=== PATIENT | male | born 1975 | race African-American/Black ===

== ENCOUNTER 2017-09-09 08:51 | Day surgery (SDC) | payer OTHER, SELFPAY ==
[2017-09-08 12:52] VITALS: BMI 40.6
[2017-09-09] VITALS (9 sets, daily range): BP systolic 115–159; BP diastolic 81–100; PULSE 60–82; RESP 18–24; TEMP 36.2–36.6; O2SAT 93–99
--- NOTE | 2017-09-09 10:00 | HMH.ANESCL ---
[facility] Anesthesia Checklist - Airway Assessment C-Spine Mobility Assessed: Yes (MP1) TMJ Mobility Assessed: Yes - Anesthesia Plan Anesthesia Risk discussed: Yes Anesthesia Plan: Verified ASA Class: III Anesthesia Type: MAC [facility] Anesthesia HX I have reviewed the patient's past medical history: Yes Medical History: Reports:: Congestive Heart Failure, Diabetes Mellitus Type 2 ( borderline'), Hypertension Denies:: Cancer, Diabetes Mellitus Type 1, MRSA, Seizures Other Medical History: Denies: Blood Transfusion Reaction Comment: Cardiomyopathy, MVR Other Surgeries: Yes: No Previous Surgery. No: Pacemaker Amputation: No Fractures: No *Family Hx:: Asthma, Coronary Artery Disease, Diabetes, Heart Attack, Hyperlipidemia, Hypertension, Kidney Disease, Stroke
--- NOTE | 2017-09-09 10:03 | P.PN_ITS ---
[facility] Anesthesia Checklist - Airway Assessment C-Spine Mobility Assessed: Yes (MP1) TMJ Mobility Assessed: Yes - Anesthesia Plan Anesthesia Risk discussed: Yes Anesthesia Plan: Verified ASA Class: III Anesthesia Type: MAC [facility] Anesthesia HX I have reviewed the patient's past medical history: Yes Medical History: Reports:: Congestive Heart Failure, Diabetes Mellitus Type 2 ( borderline'), Hypertension Denies:: Cancer, Diabetes Mellitus Type 1, MRSA, Seizures Other Medical History: Denies: Blood Transfusion Reaction Comment: Cardiomyopathy, MVR Other Surgeries: Yes: No Previous Surgery. No: Pacemaker Amputation: No Fractures: No *Family Hx:: Asthma, Coronary Artery Disease, Diabetes, Heart Attack, Hyperlipidemia, Hypertension, Kidney Disease, Stroke
[2017-09-09 10:21] LABS: Basophils % 0.6 % (0.1-2.0); Eosinophils # 0.2 K/mm3 (0.0-0.4); Eosinophils % 2.8 % (0.1-12.0); Hematocrit 50.1 % (42.0-52.0); Hemoglobin 17.1 g/dL (14.1-18.0); Lymphocytes # 2.4 K/mm3 (0.7-4.5); Lymphocytes % 30.9 K/mm3 (10-50); Mean Corpuscular HGB Conc 34.2 g/dL (31.8-35.4); Mean Corpuscular Hemoglobin 26.8 pg (27.0-31.2); Mean Corpuscular Volume 78.4 fl (80-94); Mean Platelet Volume 8.7 fl (7.4-10.4); Monocytes # 0.4 K/mm3 (0.1-1.0); Monocytes % 5.1 % (1.7-9.3); Neutrophils # 4.7 K/mm3 (1.8-7.8); Neutrophils % 60.7 % (37.0-80.0); Platelet Count 154 K/mm3 (142-424); Red Blood Count 6.39 M/mm3 (4.60-6.20); Red Cell Distribution Width 15.7 % (11.5-17.5); White Blood Count 7.8 K/mm3 (4.8-10.8)
[2017-09-09 10:23] LABS: Anion Gap 12.1 mEq/L (5-15); Blood Urea Nitrogen 17 mg/dL (7-18); Carbon Dioxide 25 mmol/L (21.0-32.0); Chloride 107 mmol/L (98-107); Creatinine Clearance Estimated 162 mg/ml (0-300); Creatinine,Serum 1.13 mg/dL (0.70-1.30); Estimated Glomerular Filt Rate > 60 ml/min (>60); GFR (African American) > 60 ML/MIN (>60); Glucose 116 mg/dL (74-106); Potassium 4.1 mmoL/L (3.5-5.1); Sodium 140 mmol/L (136-145)
--- NOTE | 2017-09-09 13:10 | XR_ITS ---
XR pacemaker defibrillator CLINICAL INDICATION: ITS.REASON: ARRYTHMIA ORDERING PHYSICIAN: Junior Blackmon MD PATIENT AGE: 42 years Fluoroscopy time: 3 minutes and 19 seconds COMPARISON: None FINDINGS: 4 images submitted with the C-arm during pacemaker insertion available for position review IMPRESSION: As above
--- NOTE | 2017-09-09 13:49 | XR_ITS ---
XR CHEST PORTABLE CLINICAL INDICATION: ITS.REASON: post AICD placement-lead placement ORDERING PHYSICIAN: Junior Blackmon MD PATIENT AGE: 42 years COMPARISON: None FINDINGS: Bipolar cardiac pacemaker device is present with an AICD in good position. No evidence of pneumothorax. Borderline cardiomegaly without failure. Lungs are clear bilaterally. IMPRESSION: Bipolar cardiac pacemaker device is present with an AICD in good position
--- NOTE | 2017-09-09 14:52 | SUR.PHASEII ---
1445: XRAY results back-good position.
--- NOTE | 2017-11-12 10:39 | P.PCN_ITS ---
[facility] Pacemaker - Pacemaker Placement Date of Procedure:: 09/09/17 Time of Procedure:: 11:00 Procedure Performed:: Pocket formation for permanent pacemaker placement Placement of atrial sensing pacing lead into the right atrial appendage Placement of ventricular sensing pacing lead into the right ventricular apex Permanent pacemaker placement Preoperative Diagnosis:: Symptomatic bradycardia Complications:: None Estimated Blood Loss: 10 Technique:: 1% Lidocaine with epinephrine used to anesthetize the left anterior aspect of the chest.Scalpel was used to make the initial cutaneous incision while electrocautery was used to dissect down into the fascia. The fascia was lifted off the pectoralis muscle and digitally manipulated creating a pocket for the pacemaker. The patient was then placed in Trendelenburg position and the subclavian vein was accessed via the Selinger technique. A 7 Marshallese sheath was placed under fluoroscopic guidance into the subclavian vein. Following this, an additional wire was placed into the sheath. Now, with two wires inside the 7 Marshallese sheath, this sheath was removed, maintaining the two wires in the subclavian vein. The sheath and dilator was then placed over one of the wires while keeping the other wire in place within the subclavian vein. The dilator was removed from the sheath. Using fluoroscopic guidance, the ventricular lead was placed into the right ventricular apex, screwed and secured into place. Electronic interrogation proved acceptable thresholds and voltage within the lead. Using 3-0 silk, the ventricular lead was then secured into place. Lead was secured to the fascia using the 3-0 silk. Following this, the sheath was pealed away. An additional 7 Marshallese fresh sheath and dilator was placed over the existing wire. Using fluoroscopic guidance, the atrial lead was then placed into the right atrial appendage and screwed and secured in place. Electrical interrogation demonstrated acceptable thresholds and voltage numbers. The atrial lead was then secured into place using 3-0 silk and then the lead was finally secured to the fascia. With both the atria and ventricular leads in place with acceptable thresholds and sensitivity, the atrial and ventricular leads were placed into the pacemaker generator. Pacemaker generator was then secured to the fascia using 3-0 silk. 1 gram of Ancef was used to flush the pocket. Following the pacemaker being secured to the fascia and in place, Monocryl was used to close the subcutaneous layers while claribel were used to close the cutaneous layer. A pressure dressing was placed and the patient was transferred to the postop holding area in stable condition for postoperative care. - Interrogation P-wave measures: 1.7 mV P-wave impedence: 620 ohms P-wave threshold: 0.3 V R-wave greater: Greater than 15 mV R-wave impedence: 570 ohms R-wave threshold: 0.5 V Pulse width: 0.5 mA Mode: DDDR Pacemaker Model Number: [id number]
--- NOTE | 2017-11-17 14:17 | HMH.AICD ---
[facility] AICD - AICD Date: 09/09/17 Procedures:: 1. Pocket formation for AICD. 2. Placement of atrial sensing and pacing coil into the right atrial appendage. 3. Placement of a ventricular sensing pacing and shocking coil in the right ventricular apex. 4. Permanent AICD placement Indications for test:: Systolic Congestive Heart Failure, ejection <35% [place] Heart Association Class 3 CHF Informed consent:: Obtained prior to procedure. EBL:: Less than 10 ml. Technique:: 1% lidocaine with epinephrine used to anesthetize the left anterior aspect of chest. Scalpel was used to make the initial cutaneous incision wall electrocautery was used to dissect down into the fascia. The fascia was lifted off the pectoralis muscle and digitally manipulated creating a pocket for the defibrillator. The patient was then placed in Trendelenburg position and the subclavian vein was accessed via the Seldinger technique. A 7 Nigerian sheath was placed under fluoroscopic guidance into the subclavian vein. Following this, an additional wire was placed into the sheath. Now, with 2 wires inside the 7 Nigerian sheath, this sheath was removed, maintaining the 2 wires in the subclavian vein. This shift and dilator was then placed over 1 of the wires while keeping the other wire in place within the subclavian vein. The dilator was removed from the sheath. Using fluoroscopic guidance, the ventricular lead was placed into the right ventricular apex, screwed and secured into place. Electronic interrogation proved acceptable thresholds and voltage within the lead. Using 3-0 silk, the ventricular lead was then secured into place. Lead was secured to the fascia using the 3-0 silk. Following this, the sheath was peeled away. An additional 7 Nigerian fresh sheath and dilator was placed over the existing wire. Using fluoroscopic guidance, the atrial lead was then placed into the right atrial appendage and screwed and secured in place. Electrical interrogation demonstrated acceptable thresholds and voltage number. The atrial lead was then secured into place using 3-0 silk. 1 g of Ancef was used to flush the pocket. Following the defibrillator being secured to the fascia and in place, Monocryl was used to close subcutaneous layer claribel were used to close the cutaneous layer. A pressure dressing was placed and the patient was transferred to the postop holding area in stable condition for postoperative care. Impression:: 1. Successful pocket formation for permanent defibrillator placement. 2. Successful placement of an atrial sensing pacing lead into the right atrial appendage. 3. Successful placement of a ventricular sensing, pacing, and shocking lead in the right ventricular apex. 4. Successful permanent defibrillator placement. Interrogation:: Generator model [id number] 40Q serial number [id number] Atrial lead model number model number [id number] serial number [id number] Right Ventricular lead model number [id number] serial number [id number] RA: P wave 1.7 mV Threshold 0.3 V Impedance 620 ohms pulse width .5 ms RVA: R wave 15 mV Threshold 0.5 V Impedance 570 ohms pulse width 0.5 ms Mode: DDDR Plan:: 1.Post-op wound care.
--- NOTE | 2017-11-17 14:24 | P.PCN_ITS ---
[facility] AICD - AICD Date: 09/09/17 Procedures:: 1. Pocket formation for AICD. 2. Placement of atrial sensing and pacing coil into the right atrial appendage. 3. Placement of a ventricular sensing pacing and shocking coil in the right ventricular apex. 4. Permanent AICD placement Indications for test:: Systolic Congestive Heart Failure, ejection <35% [place] Heart Association Class 3 CHF Informed consent:: Obtained prior to procedure. EBL:: Less than 10 ml. Technique:: 1% lidocaine with epinephrine used to anesthetize the left anterior aspect of chest. Scalpel was used to make the initial cutaneous incision wall electrocautery was used to dissect down into the fascia. The fascia was lifted off the pectoralis muscle and digitally manipulated creating a pocket for the defibrillator. The patient was then placed in Trendelenburg position and the subclavian vein was accessed via the Seldinger technique. A 7 Bulgarian sheath was placed under fluoroscopic guidance into the subclavian vein. Following this , an additional wire was placed into the sheath. Now, with 2 wires inside the 7 Bulgarian sheath, this sheath was removed, maintaining the 2 wires in the subclavian vein. This shift and dilator was then placed over 1 of the wires while keeping the other wire in place within the subclavian vein. The dilator was removed from the sheath. Using fluoroscopic guidance, the ventricular lead was placed into the right ventricular apex, screwed and secured into place. Electronic interrogation proved acceptable thresholds and voltage within the lead. Using 3-0 silk, the ventricular lead was then secured into place. Lead was secured to the fascia using the 3-0 silk. Following this, the sheath was peeled away. An additional 7 Bulgarian fresh sheath and dilator was placed over the existing wire. Using fluoroscopic guidance, the atrial lead was then placed into the right atrial appendage and screwed and secured in place. Electrical interrogation demonstrated acceptable thresholds and voltage number. The atrial lead was then secured into place using 3-0 silk. 1 g of Ancef was used to flush the pocket. Following the defibrillator being secured to the fascia and in place, Monocryl was used to close subcutaneous layer claribel were used to close the cutaneous layer. A pressure dressing was placed and the patient was transferred to the postop holding area in stable condition for postoperative care. Impression:: 1. Successful pocket formation for permanent defibrillator placement. 2. Successful placement of an atrial sensing pacing lead into the right atrial appendage. 3. Successful placement of a ventricular sensing, pacing, and shocking lead in the right ventricular apex. 4. Successful permanent defibrillator placement. Interrogation:: Generator model [id number] 40Q serial number [id number] Atrial lead model number model number [id number] serial number [id number] Right Ventricular lead model number [id number] serial number [id number] RA: P wave 1.7 mV Threshold 0.3 V Impedance 620 ohms pulse width .5 ms RVA: R wave 15 mV Threshold 0.5 V Impedance 570 ohms pulse width 0.5 ms Mode: DDDR Plan:: 1.Post-op wound care.
== END 2017-09-09 15:00 | disposition home or self-care (01) ==
PROVIDERS: PCP Family Medicine; Visit Provider Internal Medicine
PROC: 0JH608Z Insertion of Defibrillator Generator into Chest Subcutaneous Tissue and Fascia, Open Approach (ICD-10-PCS; CPT 33249; principal; 2017-09-09 11:00)
DX: Z45.02 Encounter for adjustment and management of automatic implantable cardiac defibrillator (principal); I50.22 Chronic systolic (congestive) heart failure; I34.0 Nonrheumatic mitral (valve) insufficiency; I42.0 Dilated cardiomyopathy
CPT/HCPCS: 33249; 71045; 80048; 85025; C1721; C1777; C1898

== ENCOUNTER → 2019-12-20 11:58 | Outpatient (CLI) | payer OTHER, SELFPAY ==
--- NOTE | 2019-12-20 | CA_ITS ---
APPROVED REPORT EXAM: Comprehensive 2D, Doppler, and color-flow Echocardiogram Prospect Manager: Barbara Espinoza CRT Ht: 6 ft 3 in Wt: 325lbs BSA: 2.70 BP: 148/80 mmHg Indications: Diabetes, Obesity, Peripheral Edema, Hypertension/HDD, smoker, dilated CM, smoker 2D Dimensions LVOT 2.18 cm (M/F) 1.5-2.5 M-Mode Dimensions RVDd 2.94 cm (0.9-2.6) LVDd 4.86 cm (3.5-5.7) LVDs 4.01 cm (3.5-5.7) IVSd 2.07 cm (0.6-1.1) PWd 1.39 cm (0.6-1.1) EF (Teich) 36.40% FS 17.50% EDV (Teich) 110.70 mL ESV (Teich) 70.40 mL LV Diastology E/A Ratio 0.66 Mitral Valve MV A Velocity 73.00 (40-130 cm/s) Left Ventricle Left atrium is mildly enlarged, left ventricle is normal size, moderate concentric left ventricular hypertrophy, visually estimated ejection fraction 50% with no regional wall motion abnormality, grade 1 diastolic dysfunction seen with tissue Doppler evidence of raise left atrial pressure. Right Ventricle Right atrium right ventricle mildly enlarged with normal contractility. Aortic Valve Aortic valve is minimally thickened and fibrosed, there is no aortic stenosis or aortic insufficiency. Mitral Valve Mitral valve is grossly normal, there is mild mitral regurgitation. Tricuspid Valve Tricuspid valve grossly normal, there is mild tricuspid regurgitation. Pulmonic Valve Pulmonic valve is poorly visualized. Great Vessels Aortic root is normal size. Pericardium No significant pericardial effusion noted. Conclusion 1. Mildly enlarged left atrium, normal left ventricular size, moderate concentric left ventricular hypertrophy, visually estimated ejection fraction 50% with no regional wall motion abnormality, grade 1 diastolic dysfunction seen with tissue Doppler evidence of raise left atrial pressure. 2. Mildly enlarged right ventricle with normal contractility. 3. Mild mitral and tricuspid regurgitation. 4. No significant pericardial effusion noted. Electronically signed by : Michael Ken, 12/20/2019 20:24:32
[2019-12-20 12:23] LABS: Basophils # 0.1 K/mm3 (0-0.2); Basophils % 0.7 % (0.1-2.0); Eosinophils # 0.2 K/mm3 (0.0-0.4); Eosinophils % 2.1 % (0.1-12.0); Hematocrit 50.1 % (42.0-52.0); Hemoglobin 17.3 g/dL (14.1-18.0); Lymphocytes # 1.4 K/mm3 (0.7-4.5); Lymphocytes % 17.6 % (10-50); Mean Corpuscular HGB Conc 34.5 g/dL (31.8-35.4); Mean Corpuscular Hemoglobin 27.4 pg (27.0-31.2); Mean Corpuscular Volume 79.3 fl (80-94); Mean Platelet Volume 8.3 fl (7.4-10.4); Monocytes # 0.2 K/mm3 (0.1-1.0); Monocytes % 2.7 % (1.7-9.3); Neutrophils # 5.9 K/mm3 (1.8-7.8); Neutrophils % 76.9 % (37.0-80.0); Platelet Count 239 K/mm3 (142-424); Red Blood Count 6.31 M/mm3 (4.60-6.20); Red Cell Distribution Width 13.9 % (11.5-17.5); White Blood Count 7.7 K/mm3 (4.8-10.8)
[2019-12-20 13:18] LABS: Chloride 100 mmol/L (98-107); Potassium 5.1 mmoL/L (3.5-5.1); Sodium 135 mmol/L (136-145)
[2019-12-20 13:21] LABS: Anion Gap 13.1 mEq/L (5-15); Blood Urea Nitrogen 14 mg/dl (9-20); Calcium 10.1 mg/dl (8.4-10.2); Carbon Dioxide 27 mmol/L (22.0-30.0); Estimated Glomerular Filt Rate 91 ml/min (>60); GFR (African American) 110 ML/MIN (>60); Glucose 199 mg/dl (74-100)
[2019-12-20 13:31] LABS: NT Pro Brain Natriuretic Pep. 32.7 pg/mL (0-125)
== END ==
PROVIDERS: Visit Provider Physician Assistant
DX: E11.9 Type 2 diabetes mellitus without complications (principal); E66.9 Obesity, unspecified; E78.5 Hyperlipidemia, unspecified; G47.33 Obstructive sleep apnea (adult) (pediatric); I10 Essential (primary) hypertension; I34.0 Nonrheumatic mitral (valve) insufficiency; I42.0 Dilated cardiomyopathy; I50.20 Unspecified systolic (congestive) heart failure; R60.0 Localized edema
CPT/HCPCS: 36415; 80048; 83880; 85025; 93306

== ENCOUNTER 2020-01-14 08:48 | Day surgery (SDC) | payer OTHER, SELFPAY ==
[2020-01-14] VITALS (16 sets, daily range): BP systolic 115–148; BP diastolic 65–86; PULSE 66–91; RESP 16–20; TEMP 36.8; O2SAT 92–100; BMI 42.2
--- NOTE | 2020-01-14 | IR_ITS ---
APPROVED REPORT Patient Location: Outpatient PROCEDURES Right radial arterial access Catheter placement in the right common iliac artery Right common iliac artery antegrade angiogram with unilateral runoff to the right foot Catheter placement in the left common iliac artery Left common iliac artery antegrade angiogram with unilateral runoff to the left foot Catheter placement of the distal abdominal aorta Distal abdominal aortogram INDICATION Abnormal FRANCIA 0.50 and 0.60 right left respectively, Peripheral artery disease, Jimbo class III claudication Informed consent was obtained prior to the procedure. COMPLICATIONS NONE Estimated Blood Loss: LESS THAN 10 ML TECHNIQUE 1% lidocaine used anesthetize the right anterior aspect of the right wrist. The right radial artery was accessed via the Salinger technique and a 6 Qatari hydrophilic sheath was placed in the right radial artery. Under fluoroscopic guidance the PV multi-curve catheter was placed in the right common iliac artery and right common iliac artery angiography with unilateral runoff to the right foot was performed. The catheter was then pulled back and placed into the left common iliac artery and the procedure was repeated. The catheter was then pulled back to the distal abdominal aorta and distal abdominal aortography was performed. At the end of this procedure the apparatus was removed the sheath was removed good hemostasis was achieved using TR banding patient was transferred to the postop holding in stable condition ANGIOGRAPHIC RESULTS The distal abdominal aorta is normal. The bilateral common iliac arteries are widely patent as are the bilateral internal and external iliac arteries. Bilateral femoral arteries are normal The right superficial femoral artery is ostially occluded and occluded throughout its entire course. The right profunda femoris is a large-caliber vessel which is widely patent and collateralizes the mid popliteal artery. The popliteal artery has 50% stenosis both proximal to and distal to the dense collateral network from the profunda femoris artery. Distally the popliteal artery is normal and gives rise to an anterior tibialis artery posterior tibialis artery and peroneal artery. The anterior tibialis artery has mid vessel 60% stenoses but is a large caliber vessel and has nice inline flow into the right foot. The TP trunk as a 70 to 80% stenosis and gives rise to large caliber posterior tibialis artery and peroneal artery. The peroneal artery supplies the medial portion of the ankle while the posterior tibialis artery does have inline flow into the right foot The left superficial femoral artery is proximally occluded. It does reconstitute at the pre-geniculate popliteal level. A large collateral network from a widely patent profunda femoris artery supplies the popliteal artery. The popliteal artery then gives rise to the anterior tibialis artery posterior tibialis artery and peroneal artery. There is slow flow distally. IMPRESSION Bilaterally occluded superficial femoral arteries with the right being ostially occluded and the left being proximally occluded into its distal segment Three-vessel runoff below the knee bilaterally as described above PLAN 1. I recommend medical management. Although the left superficial femoral artery is a relatively easy fix from a percutaneous standpoint patient is a smoker and the long-term patency of a stent in this distribution is relatively poor. As long as patient has no limb threatening ischemia or poorly healing lower extremity ulcer or recalcitrant claudication involving the left leg I would strongly recommend medical management. Further complicati
[2020-01-14 10:02] LABS: Basophils # 0.1 K/mm3 (0-0.2); Basophils % 1.1 % (0.1-2.0); Eosinophils # 0.3 K/mm3 (0.0-0.4); Eosinophils % 2.9 % (0.1-12.0); Hematocrit 49.2 % (42.0-52.0); Hemoglobin 16.4 g/dL (14.1-18.0); Lymphocytes % 21.4 % (10-50); Mean Corpuscular HGB Conc 33.3 g/dL (31.8-35.4); Mean Corpuscular Hemoglobin 27.2 pg (27.0-31.2); Mean Corpuscular Volume 81.6 fl (80-94); Mean Platelet Volume 8.5 fl (7.4-10.4); Monocytes # 0.4 K/mm3 (0.1-1.0); Monocytes % 4.5 % (1.7-9.3); Neutrophils # 6.5 K/mm3 (1.8-7.8); Platelet Count 223 K/mm3 (142-424); Red Blood Count 6.02 M/mm3 (4.60-6.20); Red Cell Distribution Width 13.6 % (11.5-17.5); White Blood Count 9.4 K/mm3 (4.8-10.8)
[2020-01-14 10:08] LABS: Chloride 101 mmol/L (98-107)
[2020-01-14 10:09] LABS: Potassium 4.6 mmoL/L (3.5-5.1); Sodium 136 mmol/L (136-145)
[2020-01-14 10:11] LABS: Blood Urea Nitrogen 26 mg/dl (9-20); Creatinine Clearance Estimated 96 mL/min (50-200); Estimated Glomerular Filt Rate 72 ml/min (>60); GFR (African American) 88 ML/MIN (>60)
[2020-01-14 10:12] LABS: Anion Gap 15.6 mEq/L (5-15); Carbon Dioxide 24 mmol/L (22.0-30.0); Glucose 161 mg/dl (74-100)
== END 2020-01-14 14:35 | disposition home or self-care (01) ==
LOC: CATHLAB 08:50
PROVIDERS: PCP Family Medicine; Visit Provider Internal Medicine
PROC: (CPT 75716; principal; 2020-01-14 09:00)
DX: I70.223 Atherosclerosis of native arteries of extremities with rest pain, bilateral legs (principal); Z72.0 Tobacco use; I11.0 Hypertensive heart disease with heart failure; I50.22 Chronic systolic (congestive) heart failure; I34.0 Nonrheumatic mitral (valve) insufficiency; E11.9 Type 2 diabetes mellitus without complications; E66.01 Morbid (severe) obesity due to excess calories; Z68.41 Body mass index [BMI] 40.0-44.9, adult; Z95.0 Presence of cardiac pacemaker; Z79.01 Long term (current) use of anticoagulants
CPT/HCPCS: 75716; 36247; 80048; 85025; 99152; 99153; C1725; C1769; J1644; Q9966

== ENCOUNTER → 2020-12-29 07:11 | Outpatient (CLI) | payer OTHER, SELFPAY ==
--- NOTE | 2020-12-29 | CA_ITS ---
APPROVED REPORT Exam: Pharmacologic Technologist: Meme Taylor, Ht: 6 ft 1 in Wt: 299 lbs BSA: 2.55 m2 Rhythm: NSR/IVCD WITH STT ABNORMALITIES INF. Medical History Medical History: HTN, Hyperlipidemia Medications: Asa,,,,, Allopurinol,,,,, Carvedilol,,,,, SpirOLACTONE,,,,, Digoxin,,,,, INdomethacin,,,,, AtorvaASTATIN,,,,, AmlodiNPINE,,,,, EnTRESTO,,,,, Toresemide,,,,, GabaENTIN,,,,, Cardiac Risk Factors: HTN, Hyperlipidemia Stress Test Details Test: LEXISCAN HR Resting HR: 73 bpm Max Heart Rate (APMHR): 174.634978 bpm Max HR Achieved: 95 bpm Target HR (85% APMHR): 147.739033 bpm % of APMHR: 54.60 Recovery HR: 77 bpm BP Resting BP: 156/88 mmHg Max BP: 156/88 mmHg Recovery BP: 145.0/82.0 mmHg ECG Resting ECG: NSR/ IVCD WITH STT ABNORMALITIES INF Clinical Reason for Termination: Completed Protocol Exercise duration: 04:08 min Highest Stage Achieved: Stress ECG Conclusion DURING LEXISCAN PT EXPERINCED NO CP. RARE COUPLET AND FREQUENT PVCS. <1.5MM ST SEGMENT CHANGES. NON DIAGNOSTIC Electronically signed by : Michael Ken, 12/29/2020 11:23:59
--- NOTE | 2020-12-29 07:12 | NM_ITS ---
APPROVED REPORT Exam: Nuclear Stress Test Indication: PACE MAKER, HTN, D.M., HYPERLIPIDEMIA, TOB USE, FM HX Patient Location: Outpatient Stress Tech: Yuliya Del Toro [place] Tech:JANELL Castellanos RT(R)(N) Ht: 6 ft 0 in Wt: 300 lbs HR: 69 bpm BP: 156/88 mmHg BSA: 2.53 m2 History: PACE MAKER, HTN, D.M., HYPERLIPIDEMIA, TOB USE, FM HX Procedure: Patient received a 0.4 mg of intravenous Lexiscan, resting heart rate 69 bpm, resting blood pressure 156/88 mmHg, with Lexiscan maximum heart rate achived was 87 bpm which is Less than 85 % of the maximum predicted heart rate and blood pressure was 139/83 mmHg. With Lexiscan, patient denied any complaint of chest pain. Electrocardiogram Resting electrocardiogram showed sinus rhythm, with Lexiscan there is less than 1.[address] segment depression noted from the baseline EKG. The EKG portion of the Lexiscan is nondiagnostic. Cardiac Stress and Resting SPECT Images: Cardiac Stress and Resting SPECT images were obtained using technetium 99m Myoview 31.0 mCi stress and 10.11 mCi at rest. Gated SPECT for analysis of segmental wall motion and calculation of the ejection fraction also done. Prone images were also obtained. Cardiac stress and rest SPECT images show uniform myocardial activity without segmental perfusion abnormality, there is transient ischemic dilatation of the left ventricle seen, computer derived ejection fraction 35% with left ventricular global hypokinesis. Right ventricle is mildly enlarged with normal contractility. Conclusion: 1. The EKG portion of the Lexiscan is nondiagnostic. 2. No scintigraphic evidence of reversible ischemia seen, computer derived ejection fraction is 35% with left ventricular global hypokinesis, right ventricle is mildly enlarged with normal contractility, there is transient ischemic dilatation of the left ventricle seen, the causes for transient ischemic dilatation is balanced ischemia, microvascular disease, diabetes, elevated left ventricular end-diastolic pressure and hypertensive heart disease. Clinical correlation is recommended. 3. Abnormal Lexiscan Myoview study. Electronically signed by : Michael Ken, 12/29/2020 11:27:54
--- NOTE | 2020-12-29 07:27 | CA_ITS ---
APPROVED REPORT EXAM: Comprehensive 2D, Doppler, and color-flow Echocardiogram Patient Coordinator Front Desk: Lorena Becerril RVT Ht: 6 ft 1 in Wt: 299lbs BSA: 2.55 BP: 170/97 mmHg Indications: VTACH,CM,CHF,HLD,HTN,DM,OBESITY TDS-PT BODY HABITUS 2D Dimensions LVOT 2.21 cm (M/F) 1.5-2.5 LA Volume 41.90 mL LA Volume Index 16.43 mL/m2 (M/F) 16-34 M-Mode Dimensions RVDd 2.52 cm (0.9-2.6) LA Diam 3.43 cm (1.9-4.0) LVDd 6.83 cm (3.5-5.7) Ao Diam 3.67 cm (2.0-3.7) LVDs 5.15 cm (3.5-5.7) IVSd 1.00 cm (0.6-1.1) PWd 1.00 cm (0.6-1.1) EF (Teich) 47.60% FS 24.60% EDV (Teich) 241.60 mL TAPSE 1.79 (<1.7) ESV (Teich) 126.60 mL LV Diastology E Decel Time 290.00 (160-240 msec) E/A Ratio 0.9 MED E' 5.20 (< 7 cm/sec) E'/MED E' Ratio 12.54 (>14) LAT E' 8.40 (<10 cm/sec) E/LAT E' Ratio 7.76 (>14) Mitral Valve MV E Max Capo. 65.00 (40-130 cm/s) MV A Velocity 73.00 (40-130 cm/s) E/A Ratio 0.89 MV Decel. Time 290.00 (160-240 ms) MV PHT 85.00 ms Pulmonary Valve PV Peak Velocity 95.00 (50-150 cm/s) Left Ventricle Left atrium is mildly enlarged, left ventricle is mildly dilated, mild concentric left ventricular hypertrophy, visually estimated ejection fraction approximately 40 to 45%, left ventricle appears to be globally hypokinetic. Diastolic parameters are inconclusive. Right Ventricle Right atrium and right ventricle are normal size and contractility. Aortic Valve Aortic valve is grossly normal, there is no aortic stenosis or aortic insufficiency. Mitral Valve Mitral valve grossly normal, there is trace mitral regurgitation. Tricuspid Valve Tricuspid grossly normal, there is trace tricuspid regurgitation. Tricuspid regurgitation jet velocity is inadequate for calculation of the right ventricular systolic pressure. Pulmonic Valve Pulmonic valve is poorly visualized. Great Vessels Aortic root is normal size. Pericardium No significant pericardial effusion noted. Conclusion 1. Technically difficult study because of the patient fact in poor acoustic windows 2. Mildly enlarged left atrium, mildly dilated left ventricle, mild concentric left ventricular hypertrophy, visually estimated ejection fraction 40 to 45%, left ventricle is mildly globally hypokinetic, diastolic parameters are inconclusive. 3. Trace mitral and tricuspid regurgitation. 4. No significant pericardial effusion noted. Electronically signed by : Michale Ken, 12/29/2020 12:49:04
== END ==
PROVIDERS: PCP Family Medicine; Visit Provider Urology
DX: I47.2 Ventricular tachycardia (principal); I42.0 Dilated cardiomyopathy; I34.0 Nonrheumatic mitral (valve) insufficiency; I50.22 Chronic systolic (congestive) heart failure; I11.0 Hypertensive heart disease with heart failure; I73.9 Peripheral vascular disease, unspecified; R94.31 Abnormal electrocardiogram [ECG] [EKG]; E11.9 Type 2 diabetes mellitus without complications; E66.01 Morbid (severe) obesity due to excess calories; E78.49 Other hyperlipidemia; G47.33 Obstructive sleep apnea (adult) (pediatric); F17.210 Nicotine dependence, cigarettes, uncomplicated; Z68.39 Body mass index [BMI] 39.0-39.9, adult
CPT/HCPCS: 78452; 93017; 93306; A9502; J2785

== ENCOUNTER 2024-07-01 09:41 | Outpatient (CLI) | payer OTHER, MEDICAID, SELFPAY ==
--- NOTE | 2024-07-01 09:51 | XR_ITS ---
PROCEDURE INFORMATION: Exam: XR Chest Exam date and time: 07/01/2024 9:57 AM Age: 49 years old Clinical indication: Other: Cxr to check implant. ; Additional info: Look at inplant TECHNIQUE: Imaging protocol: Radiologic exam of the chest. Views: 2 views. Total images: 3 COMPARISON: CR [id number] XR chest portable 09/09/2017 2:12 PM FINDINGS: Tubes, catheters and devices: AICD projects in satisfactory location. Lungs: Bilateral hyperinflation is present. Atelectatic and/or early infiltrative changes noted within the right lower lobe. Pleural spaces: Unremarkable. No pleural effusion. No pneumothorax. Heart/Mediastinum: Heart demonstrates mild diffuse enlargement. Bones/joints: Unremarkable. IMPRESSION: 1. AICD projects in satisfactory location. 2. Mild cardiomegaly. 3. Bilateral hyperinflation is present. 4. Atelectatic and/or early infiltrative changes noted within the right lower lobe.
[2024-07-01 10:13] LABS: Basophils # 0.1 K/mm3 (0-0.2); Basophils % 1.3 % (0.1-2.0); Eosinophils # 0.1 K/mm3 (0.0-0.4); Eosinophils % 1.3 % (0.1-12.0); Hematocrit 50.9 % (42.0-52.0); Hemoglobin 17.4 g/dL (14.1-18.0); Lymphocytes # 2.6 K/mm3 (0.7-4.5); Lymphocytes % 46.2 % (10-50); Mean Corpuscular HGB Conc 34.3 g/dL (31.8-35.4); Mean Corpuscular Hemoglobin 26.9 pg (27.0-31.2); Mean Corpuscular Volume 78.5 fl (80-94); Mean Platelet Volume 8.2 fl (7.4-10.4); Monocytes # 0.4 K/mm3 (0.1-1.0); Monocytes % 6.6 % (1.7-9.3); Neutrophils # 2.5 K/mm3 (1.8-7.8); Neutrophils % 44.7 % (37.0-80.0); Platelet Count 152 K/mm3 (142-424); Red Blood Count 6.48 M/mm3 (4.60-6.20); Red Cell Distribution Width 16.1 % (11.5-17.5); White Blood Count 5.5 K/mm3 (4.8-10.8)
[2024-07-01 10:50] LABS: Alanine Aminotransferase 44 U/L (12-78); Albumin Level 3.5 g/dl (3.5-5.0); Alkaline Phosphatase 99 U/L (38-126); Anion Gap 14.1 mEq/L (5-15); Aspartate Amino Transferase 45 U/L (17-59); Bilirubin,Direct 0.4 mg/dl (0.0-0.4); Bilirubin,Indirect 1.1 mg/dL (0.0-0.9); Bilirubin,Total 1.5 mg/dl (0.2-1.3); Bilirubin,Unconjugated 1.1 mg/dL (0.0-1.1); Blood Urea Nitrogen 29 mg/dl (9-20); Calcium 8.8 mg/dl (8.4-10.2); Carbon Dioxide 23 mmol/L (22.0-30.0); Chloride 103 mmol/L (98-107); Chol/HDL Ratio 4.7 (1-3.5); Cholesterol 107 mg/dl (140-200); Estimated Glomerular Filt Rate 43 ml/min (>60); GFR (African American) 52 ML/MIN (>60); Glucose 134 mg/dl (74-100); HDL Cholesterol 23 mg/dl (40-60); Potassium 4.1 mmoL/L (3.5-5.1); Sodium 136 mmol/L (136-145); Triglycerides 91 mg/dl (30-150); VLDL Cholesterol 18 mg/dL (0-40)
[2024-07-01 10:58] LABS: NT Pro Brain Natriuretic Pep. 7310 pg/mL (0-125)
[2024-07-01 11:00] LABS: Direct LDL Cholesterol 79.29 mg/dL (100-129)
[2024-07-01 11:06] LABS: Free T4 (Free Thyroxine) 1.76 ng/dl (0.78-2.19)
[2024-07-01 11:19] LABS: Thyroid Stimulating Hormone 2.67 uIU/mL (0.465-4.68)
== END 2024-07-01 23:59 | disposition home or self-care (01) ==
LOC: LAB 09:43
PROVIDERS: PCP Family Medicine; Visit Provider Physician Assistant
DX: I50.42 Chronic combined systolic (congestive) and diastolic (congestive) heart failure (principal); Z95.810 Presence of automatic (implantable) cardiac defibrillator; I73.9 Peripheral vascular disease, unspecified; E78.2 Mixed hyperlipidemia; I34.0 Nonrheumatic mitral (valve) insufficiency; I10 Essential (primary) hypertension; R06.00 Dyspnea, unspecified; R07.9 Chest pain, unspecified
CPT/HCPCS: 36415; 71046; 80048; 80061; 80076; 83880; 84439; 84443; 85025

== ENCOUNTER 2024-07-13 08:28 | Outpatient (CLI) | payer OTHER, MEDICAID, SELFPAY ==
--- NOTE | 2024-07-13 08:38 | CA_ITS ---
APPROVED REPORT EXAM: Comprehensive 2D, Doppler, and color-flow Echocardiogram [employer] Operator: Barbara Espinoza CRT Ht: 6 ft 1 in Wt: 287lbs BSA: 2.51 BP: 103/73 mmHg Indications: Chest Pain, Congestive Heart Failure, Shortness of Breath aicd, ef 40-45% 12/27 2D Dimensions LA Volume 83.80 mL LA Volume Index 32.60 mL/m2 (M/F) 16-34 M-Mode Dimensions RVDd 3.18 cm (0.9-2.6) LA Diam 4.35 cm (1.9-4.0) LVDd 7.60 cm (3.5-5.7) LVDs 7.07 cm (3.5-5.7) IVSd 1.12 cm (0.6-1.1) PWd 1.10 cm (0.6-1.1) EF (Teich) 15.00% FS 7.00% EDV (Teich) 307.30 mL TAPSE 1.44 (<1.7) ESV (Teich) 261.20 mL LV Diastology MED A' 1.30 cm/s LAT A' 6.70 cm/s Aortic Valve AI PHT 605.00 ms AO Peak GR. 2.40 mmHg Pulmonary Valve PV Peak Velocity 182.0 (50-150 cm/s) Tricuspid Valve TR P. Velocity 278.00 cm/s RAP Estimate 10.00 mmHg RVSP 40.90 mmHg Left Ventricle The left ventricle is severely dilated. Left ventricular systolic function is severely decreased. There is normal left ventricular wall thickness. There is severe global hypokinesis present. The distal and apical LV wall regions appear akinetic. Diastolic function is indeterminate. LVEF is 10???15%. Right Ventricle Right ventricle is mild to moderately dilated. Right ventricle is moderately hypokinetic. A device lead is present in the right ventricle. Atria Left atrium is severely dilated. Right atrium is moderately dilated. There is no Doppler evidence of interatrial shunt. Aortic Valve The aortic valve is mildly thickened. There is no aortic valvular stenosis. Mild aortic regurgitation. Mitral Valve The mitral valve leaflets are mildly thickened. No evidence of mitral valve stenosis. Mild mitral regurgitation. Tricuspid Valve The tricuspid valve leaflets are thin and pliable. Trace tricuspid regurgitation. There is insufficient TR jet to estimate RVSP. Pulmonic Valve The pulmonary valve is normal in structure. Trace pulmonic regurgitation. The ascending aorta is not well-visualized. Great Vessels The aortic root is normal in size. IVC is dilated. Pericardium There is no pericardial effusion. Other Information Study Quality: Fair Conclusion Severely dilated LV with severe reduction in LV systolic function (LVEF 10-15%). Mild to moderate RV dilation with moderate reduction in RV function. Biatrial dilation. Mild AI, mild MR. LV severely reduced LV systolic function, further evaluation for ischemia is suggested. Also, outpatient cardiac MRI (cardiomyopathy protocol) is suggested to evaluate for nonischemic etiologies. Electronically signed by : Mattie Garcia MD 07/14/2024 11:28:22
[2024-07-13 10:41] LABS: Anion Gap 16.6 mEq/L (5-15); Blood Urea Nitrogen 30 mg/dl (9-20); Calcium 8.8 mg/dl (8.4-10.2); Carbon Dioxide 29 mmol/L (22.0-30.0); Chloride 95 mmol/L (98-107); Estimated Glomerular Filt Rate 50 ml/min (>60); GFR (African American) 60 ML/MIN (>60); Glucose 120 mg/dl (74-100); Potassium 3.6 mmoL/L (3.5-5.1); Sodium 137 mmol/L (136-145)
[2024-07-13 10:48] LABS: NT Pro Brain Natriuretic Pep. 7920 pg/mL (0-125)
== END 2024-07-13 23:59 | disposition home or self-care (01) ==
PROVIDERS: Nurse Practitioner; PCP Family Medicine; Visit Provider Physician Assistant
DX: I34.0 Nonrheumatic mitral (valve) insufficiency (principal); R07.9 Chest pain, unspecified; R06.00 Dyspnea, unspecified; I50.42 Chronic combined systolic (congestive) and diastolic (congestive) heart failure; I10 Essential (primary) hypertension; E78.2 Mixed hyperlipidemia; I73.9 Peripheral vascular disease, unspecified; R79.89 Other specified abnormal findings of blood chemistry; Z95.810 Presence of automatic (implantable) cardiac defibrillator
CPT/HCPCS: 36415; 80048; 83880; 93306

== ENCOUNTER 2024-07-13 10:35 | Inpatient (IN) | payer OTHER, MEDICAID, SELFPAY ==
[2024-07-13] VITALS (9 sets, daily range): BP systolic 92–153; BP diastolic 58–87; PULSE 99–130; RESP 18–24; TEMP 36.6–36.8; O2SAT 95–98; BMI 36.5
--- OUTSIDE RECORDS SUMMARY | 2024-07-13 10:42 | XMS_ITS | Summary of Care ---
Author Organization [facility] Address [address] [place] [address]- Encounter 10/24/23 - 11/07/23 [facility] [address] [place] [address] Discharge Disposition: 06H Home with Home Health Care Attending Physician: Alvin Boston DO Admitting Physician: Alvin Boston DO Referring Physician: Michael Owen MD Allergies, Adverse Reactions, Alerts Substance Reaction Severity Status rivaroxaban Active Assessment and Plan Extracted from: Title:[facility] PM&R Discharge Summary Author:John Gabriel Date:11/07/23 Patient: SHALOM CAMPBELL Age: 48 years Sex: Male : 1975 Associated Diagnoses: None Author: John Jones MD Result Type: Physician Discharge Summary Result Date: November 07, 2023 08:00 EST Result Status: Auth (Verified) Result Title/Subject: [facility] PM&R Discharge Summary Performed By/Author: John Jones MD on November 05, 2023 14:54 EST Verified By: John Jones MD on November 05, 2023 14:54 EST Encounter info: [id number], [facility], Inpatient, 10/24/2023 - * Final Report * [facility] PM&R Discharge Summary Patient: SHALOM CAMPBELL Age: 48 years Sex: Male : 1975 Associated Diagnoses: None Author: John Jones MD [facility] PM&R Discharge Summary Date of Admission: 10/24/23 Date of Discharge: 11/07/23 Service Attending: Dr. Boston Discharge Attending: Dr. Boston Service Resident: John Jones MD Admission Diagnosis: Acute infarct of the R lateral medulla s/p TNK Admission HPI: Shalom Puckett is a 48-year-old gentleman with past medical history significant for hypertension, hyperlipidemia, previous DVT (2019) previously on Xarelto, heart failure reduced ejection fraction status post pacemaker/defibrillator who presented to outside hospital 10/02/2023 after having difficulty swallowing and feeling weak on the right side. Upon arrival to outside hospital, CT head was performed notable for ischemic stroke and patient received tPA. There was concern for right medullary ischemic CVA and patient was subsequently transferred to [facility] for further evaluation and management. CTA at [facility] was significant for occlusion of right vertebral artery, stenosis of the left vertebral artery, in addition to possible aneurysm at basilar tip. MR head 10/07 showed acute infarct of the right lateral medulla coinciding with patient's deficits of dysphagia. Echo was subsequently performed with EF notable for 20 to 25% without mass or thrombus and global hypokinesis. Patient was subsequently stabilized and physical therapy and Occupational Therapy recommended acute rehabilitation. Patient was stable enough to begin acute rehabilitation on 10/24/2023. He was evaluated at bedside at [facility] with present and patient was able to relay that he was interested in going to [facility] for acute rehabilitation, especially to work on his ability to swallow. He had no additional concerns or complaints at this point in time and is eager to begin rehab. Hospital course complicated by: Acute hypoxic respiratory failure complicated by bilateral pleural effusion secondary to heart failure: 10/12 on intermittent 2 L nasal cannula? denies shortness of air. Encouraged incentive spirometry and compliance with HFrEF regimen Hypertension: Continue spironolactone 25 mg twice daily, Coreg 25 mg twice daily, Entresto 1 tablet twice daily HFrEF status post ICD placement in setting of ischemic cardiomyopathy: EF 20 to 25% with LV dilation? on GDMT. Recommend follow-up with outpatient cardiology Dysphagia: Unable to tolerate p.o. intake? PEG placed 10/18? will continue tube feeds and follow-up outpatient with IR 2 weeks A-fib: Continue Coreg for rate control, Eliquis 5 mg twice daily Histories: PMH: NOEMI, Obesity, HFrEF, ischemic cardiomyopathy, HTN, HL, prior DVT Surg Hx: Colonoscopy, Defibrillator placement Family hx: Father ? CVA Mother - HTN Social hx: Marital Status: Not - girlfriend Children: 2 daughters Previous Residence: [place] Anticipated Residence: Home Tobacco: Denies Alcohol: Denies Drugs: Denies Education: Graduated high school International Travel: denies past 6 months Occupational History: Drug Abuse Counseling Hobbies: Gambling in [place] DME used prior to rehab: None Patient/Family goals for rehab: Gain independence Rehabilitation Hospital Course: Patient was admitted to the CVA service. They were evaluated by PT, OT, and speech. Pt participated and tolerated an average of 3 hours of therapy a day, 5 days a week and made appropriate progress throughout their acute rehabilitation hospital stay. Medical conditions during the rehabilitation stay were addressed as followed below. Rehabilitation of functional impairment: - Completed comprehensive acute inpatient rehabilitation - PT worked on posture/stability, core strengthening and stabilization, gait training, community mobility, balance and positioning, coordination and fine motor control - OT worked on home safety, cognition and memory strategies, core strengthening and stabilization, balance and positioning, functional range of motion, coordination, equipment assessment and training, functional/ADL training including upper and lower body dressing, eating, grooming, toileting - DRILL SHARPENER worked on, cognition and memory strategies as indicated - Rehab nursing worked on self care, medication management and teaching (including pain management), patient mobilization, and safety training - Recommend continuing therapeutic exercises as indicated Medical Hospital Course: Shalom Campbell is a 48-year-old gentleman with past medical history significant for hypertension, hyperlipidemia, previous DVT (2019) previously on Xarelto, heart failure reduced ejection fraction status post pacemaker who suffered the right lateral medulla s/p TNK. Patient was admitted to [facility] and the following problems and treatments for such are detailed below: Rehab diagnoses: R lateral Medulla s/p TNK Resulting Medical/functional changes: Dysphagia Impairment in ADLs Functional Decline Dysarthria Gait disturbance Acute Hospitalization Complicated by: Acute hypoxic respiratory failure complicated by bilateral pleural effusion secondary to HFrEF Hypertension HFrEF status post ICD Dysphagia Feeding difficulty A-fib Medical Comorbidities: T2DM GERD HL Insomnia Gout Rehabilitation for functional pain secondary to AIS of right lateral medulla -Continue with comprehensive rehabilitation program with PT/OT/DRILL SHARPENER and rehab nursing #Acute ischemic??posterior circulation??stroke #Acute Rt Lateral Medulla Infarct #Right vertebral artery occlusion #Severe left vertebral artery stenosis #Post-stroke headache #Dysphagia, post stroke #Hyperlipidemia #Dysarthria #R hemiplegia - No home AP/AC use. Discontinued Xarelto one month ago. - tPA bolus at OSH - No thrombectomy as no LVO on CTA H/N - Etiology cardioembolic (Afib??and severe heart failure) - MRI: Acute infarct of right lateral medulla and chronic cortical infract in pars opercularis - Echo with contrast EF 20-25%, no mass/thrombus, LV severely dilated with severe hypertrophy and global hypokinesis, LA normal size, no ASD or PFO. Diastolic function abnormal - Dysphagia recommend continued NPO; with continuous tube feeds 75mL/hr for nutrition with 30mL/hr water flushes ? transitioned to bolus feeds 10/27/23. MBS 11/02 w no penetration or aspiration - will determine diet recs after discussing what DRILL SHARPENER thinks - Secondary stroke prophylaxis: ??Continued Apixaban 5 mg twice daily, atorvastatin 80mg hs, and ezetimibe 10mg hs -10/30 added nortriptyline 25 mg nightly for sleep hygiene, neuropathic pain, and watering eyes/sinus drainage #Acute hypoxic respiratory failure #Bilateral pleural effusions r/t heart failure -??Reported productive cough at [facility] - COVID negative - Possibly secondary to decreased ability to swallow with possible aspiration. - 10/08, Abd ultrasound: negative for ascites, noted bilateral pleural effusions -??Provided oxygen PRN for comfort and encourage IS and q6 duonebs #HTN Complicated by hypotension - Will continue Spironolactone??25mg BID, carvedilol 25mg BID, and Entresto 1 tablet BID - Can consider titrating carvedilol and Entresto to home dosing given HFrEF afterload reduction -Persistent hypotension, 10/28 dropped spironolactone to 25 mg daily, decreased Coreg to 12.5 mg twice daily, and changed torsemide to as needed dosing -10/30 dropped Coreg to 6.25 mg twice daily with continued hypotension #HFrEF s/p ICD placement #Ischemic Cardiomyopathy #Diastolic dysfunction- EF of 20-25% with LV dilation and eccentric hypertrophy - Cause secondary to ischemic cardiomyopathy - Pt on Coreg 25, Entresto BID,??and Spironolactone (GDMT) -10/28 decreasing Coreg to 12.5 mg twice daily, spironolactone to 25 mg daily - Home dose of Torsemide 20mg PRN -10/28 changed to as needed dosing of torsemide given hypotension - Recommend to follow-up with outpatient cardiology for further management. - Transitioned to entresto daily from BID on 10/30 - Continued to monitor BP #History of unprovoked DVT -??Did??not have any prolonged travel, acute illness, or recent procedure or immobility before the DVT. -??Was on anticoagulation??(xarelto)??until a month ago for 3 month duration. - 10/18 apixaban 5 mg twice daily initiated ? continued #History of Afib status post ablation - Follows [facility] - Continued carvedilol for rate control - 10/18, apixaban 5 mg twice daily initiated. #Hyperglycemia - A1c: 6.6% - Continued FSBS q6h and SSI and 5u glargine qhs #Gout - Continued home allopurinol #Nicotine use disorder -Continued NRT #QT prolongation - 10/02, Qtc 467 - Had caution with QT prolonging agents #Morbid Obesity - BMI: 38.81 - associated with HTN #Neurogenic bowel - bowel regimen with goal for BM at least every 72 hrs - Daily doc ? senna. PRN bisacodyl #Insomnia -Noted to be chronic issue, continued melatonin 9 mg nightly Patient noted to be medically stable on the day of discharge. Physical Exam: Vital Signs (last 24 hrs) Last Charted Temp Oral 98.4 DegF (NOV 05 07:) Heart Rate Peripheral 86 bpm (NOV 05:17) Resp Rate 18 br/min (NOV 05:17) SBP 111 mmHg (NOV 05 07:17) DBP 73 mmHg (NOV 05 07:17) SpO2 94 % (NOV 05:17) Labs: Labs (Last four charted values) WBC 6.7 (NOV 03) 6.8 (OCT 30) 7.6 (OCT 27) 7.9 (OCT 25) Hgb 15.6 (NOV 03) 16.1 (OCT 30) 15.7 (OCT 27) 15.5 (OCT 25) Hct 44.8 (NOV 03) 47.1 (OCT 30) 45.6 (OCT 27) 44.3 (OCT 25) Plt 172 (NOV 03) 170 (OCT 30) 197 (OCT 27) 193 (OCT 25) Na 136.0 (NOV 03) 137.0 (OCT 30) 136.0 (OCT 27) 138.0 (OCT 25) K 3.9 (NOV 03) 4.3 (OCT 30) 4.3 (OCT 27) 4.2 (OCT 25) CO2 26.0 (NOV 03) 29.0 (OCT 30) 27.0 (OCT 27) 28.0 (OCT 25) Cl 103.0 (NOV 03) 99.0 (OCT 30) 100.0 (OCT 27) 101.0 (OCT 25) Cr 0.90 (NOV 03) 1.10 (OCT 30) 1.00 (OCT 27) 1.00 (OCT 25) BUN 12.0 (NOV 03) 20.0 (OCT 30) 21.0 (OCT 27) 20.0 (OCT 25) Glucose 99 (NOV 05) H 171 (NOV 04) H 120 (NOV 04) H 111 (NOV 04) Mg 1.9 (OCT 25) Phos 4.3 (OCT 25) Ca 9.4 (NOV 03) 10.2 (OCT 30) 9.7 (OCT 27) 9.7 (OCT 25) Functional Status on Admission: Current Level of Function Bed Mobility: Supervision Supervision Comments: 10/14: Mod I for all bed mobilty Transfers: Supervision Supervision Comments: 10/16: sit to stand, stand to sit Transfers: Minimal Assistance Minimal Assistance Comments: 10/16: bed to chair, chiar to bed Ambulation: Minimal Assistance Minimal Assistance Comments: 10/09: 25 ft x 4 reps with 2 seated rest breaks Basic ADL's: Minimal Assistance Minimal Assistance Comments: none tested Dressing: Supervision Supervision Comments: 10/16: SBA for upper body Discharge Medications: Home Medications (19) Active allopurinol 100 mg oral tablet 100 mg = 1 tab, G-TUBE, Daily apixaban 5 mg oral tablet 5 mg = 1 tab, G-TUBE, BID atorvastatin 80 mg oral tablet 80 mg = 1 tab, Oral, QHS Coreg 3.125 mg oral tablet 6.25 mg = 2 tab, G-TUBE, BIDmeals docusate-senna 50 mg-8.6 mg oral tablet 2 tab, G-TUBE, QHS Entresto 24 mg-26 mg oral tablet 1 tab, G-TUBE, Daily insulin glargine 100 units/mL subcutaneous solution 5 units, Subcutaneous, QHS insulin lispro 100 units/mL injectable solution Standard, Subcutaneous, TIDAC lactulose 10 g/15 mL oral syrup 20 gm = 30 mL, PRN, Oral, Daily lansoprazole 30 mg oral tablet, disintegrating 30 mg = 1 tab, G-TUBE, BID melatonin 3 mg oral tablet 9 mg = 3 tab, G-TUBE, QHS MiraLax oral powder for reconstitution 17 gm, Oral, Daily nicotine 7 mg/24 hr transdermal film, extended release 1 patch, Transdermal, Daily nortriptyline 25 mg oral capsule 25 mg = 1 cap, G-TUBE, QHS simethicone 80 mg oral tablet, chewable 80 mg = 1 tab, PRN, G-TUBE, q6hr spironolactone 25 mg oral tablet 25 mg = 1 tab, G-TUBE, Daily torsemide 20 mg oral tablet 20 mg = 1 tab, PRN, G-TUBE, Daily Vitamin D3 25 mcg (1000 intl units) oral tablet 50 mcg = 2 tab, Oral, Daily Zetia 10 mg oral tablet 10 mg = 1 tab, G-TUBE, QHS Discharge Precautions: - Patient was prescribed a month of medication scripts and will need to f/u with PCP for further medication prescriptions. - Patient instructed not to drive until evaluated and cleared by a physician. Discharge Status: Improved Discharge Disposition: Home Therapies on discharge: Outpatient PT, OT, DRILL SHARPENER Follow up: Encounter Information Provider Department Dept Phone Address 11/14/2023 1:20 PM Elizabeth, December R, [employer] [facility] Arrive at: [facility] [phone] [address] [facility] [address] 12/26/2023 10:00 AM Katie Bhakta [facility] [place] [facility] Arrive at: [facility] [phone] [address], [address] [facility] [address] Please CC to above providers. HIM: Please cc providers listed above. Addendum by Loc Boston DO on November 07, 2023 10:36 EST I have personally seen and examined the patient independently, reviewed the Resident/ARNPs history, physical exam and medical decision making and agree with the assessment and discharge plan as written. The patient was discharged in stable medical condition. Insulin supplies provided to the family. PEG site looks great on D/C. Functional Status at Discharge: ADL Status [id number] Eating: Not attempted due to medical condition or safety concerns - 88 (11/06/23) [id number] Oral Hygiene: Independent - 06 (11/06/23) [id number] Upper Body Dressing: Independent - 06 (11/06/23) [id number] Lower Body Dressing: Independent - (11/06/23) [id number] Toileting Hygiene: Independent - (11/06/23) [id number] Toilet Transfer: Independent - (11/06/23) [id number] Shower, Bathe Self: Independent - (11/06/23) Tub/Shower Transfer- OT: CANTRELL/CU (11/06/23) Mobility Functional Status [id number] Lying to Sitting Side of Bed Goal: Independent - (11/05/23) [id number] Sit to Stand: Independent - (11/06/23) [id number] Chair,Bed to Chair Transfer: Independent - (11/06/23) [id number] Walk 10 Feet: Independent - (11/05/23) [id number] Walk 50 Feet with Two Turns: Supervision or touching assistance - 04 (11/05/23) [id number] Walk 150 Feet: Supervision or touching assistance - 04 (11/05/23) Speech/Language & Cognition Functional Status Comprehension Mode Functional Status: Auditory, Visual (10/24/23) Ability to Hear: Adequate - no difficulty in normal conversation, social interaction, listening to TV (10/25/23) Visual Acuity: Adequate - sees fine detail, such as regular print in newspapers/books (10/25/23) Health Literacy SILS: Sometimes (11/07/23) [id number] Expression of Ideas and Wants: Expresses complex messages without difficulty and with speech that is clear and easy to understand - 4 (11/06/23) [id number] Understanding Verbal Content: Understands - Clear comprehension without cues or repetitions - 4 (11/06/23) Expression Mode Functional Status: Vocal (10/24/23) Person Orientation IP: Independent (11/05/23) Place Orientation IP: Independent (11/05/23) Time Orientation IP: Independent (11/05/23) Situation Orientation IP: Independent (11/05/23) Biographical Information Orientation IP: Independent (11/05/23) Attention Functional Status - OT: Independent (11/06/23) Attention Functional Status - DRILL SHARPENER: Usually Independent (11/06/23) Memory Functional Status - OT IP: Independent (11/06/23) Memory Functional Status - DRILL SHARPENER IP: Usually Independent (11/06/23) Safety Awareness/Insight - OT: Independent (11/06/23) Safety Awareness/Insight - DRILL SHARPENER: Independent (11/06/23) Simple Problem Solving Func Status OT: Independent (11/06/23) Simple Problem Solving Func Status DRILL SHARPENER: Independent (11/06/23) Complex Problem Solving Func Status OT: Usually Independent (11/06/23) Complex Problem Solving Func Status DRILL SHARPENER: Usually Independent (11/06/23) Communication/Cognition Descriptors: Delayed Response, Self cues, Verbal cues, Visual cues (10/26/23) Communication/Cognition Equipment: Glasses, Bifocals or Contacts, Timer (10/26/23) All patient/family questions were answered. Less than 30 minutes of time was spent in preparing the patient for discharge today. Discharge planning by the primary team has been completed including d/c instructions, ordering DME, discharge medications/prescriptions, restrictions, physician follow up plans, and therapy plans. Addendum by Loc Boston DO on November 07, 2023 10:40 EST Day of D/C Exam: Gen: No distress, resting in bed, shirtless Eyes: no scleral icterus, pupils symmetric, no conjunctival injection ENT: mucous membranes moist, nares patent CV: Regular rate, regular rhythm, (+) S1/S2 Resp: CTA bilaterally, non-labored on RA, symmetric chest wall rise GI: soft, NTTP, +BS, PEG in place (18Fr, non-traction removable) at 9cm MSK: no arthralgias, no myalgias to palpation Neuro: awake and alert, mild dysarthria Medications Alcohol Swabs 1, EA, N/A, ACHS, Use to test blood glucose. Dispense 30 day supply Diagnosis ICD10: E11, 200, EA, 0 Refill(s), Maintenance, Route to Pharmacy Electronically, NMPDP_[id number], Constant Indicator, [facility], 185, 10/31/23 16:4... Start Date: 11/07/23 Status: Ordered allopurinol 100 mg oral tablet 100 mg = 1 tab, Tab, G-TUBE, Daily, 30 tab, 0 Refill(s), Route to Pharmacy Electronically, [facility], 185, 10/31/23 16:43:00 EST, Height/Length Dosing, cm, 131.4, 10/31/23 16:43:00 EST, Weight Dosing, kg Start Date: 11/05/23 Status: Ordered apixaban 5 mg oral tablet 5 mg, = 1 tab, Tab, G-TUBE, BID, 60 tab, 0 Refill(s), Route to Pharmacy Electronically, [facility], 185, 10/31/23 16:43:00 EST, Height/Length Dosing, cm, 131.4, Weight Dosing, 10/31/23 16:43:00 EST, kg, Atrial fibrillation Start Date: 11/05/23 Status: Ordered atorvastatin 80 mg oral tablet 80 mg = 1 tab, Oral, QHS, 30 tab, 0 Refill(s), Route to Pharmacy Electronically, [facility], 185, 10/31/23 16:43:00 EST, Height/Length Dosing, cm, 131.4, 10/31/23 16:43:00 EST, Weight Dosing, kg Start Date: 11/05/23 Status: Ordered Coreg 3.125 mg oral tablet 6.25 mg = 2 tab, Tab, G-TUBE, BIDmeals, 120 tab, 0 Refill(s), Route to Pharmacy Electronically, [facility], 185, 10/31/23 16:43:00 EST, Height/Length Dosing, cm, 131.4, 10/31/23 16:43:00 EST, Weight Dosing, kg Start Date: 11/05/23 Status: Ordered docusate-senna 50 mg-8.6 mg oral tablet 2 tab, Tab, G-TUBE, QHS, 60 tab, 0 Refill(s), Route to Pharmacy Electronically, [facility], 185, 10/31/23 16:43:00 EST, Height/Length Dosing, cm, 131.4, 10/31/23 16:43:00 EST, Weight Dosing, kg Start Date: 11/05/23 Status: Ordered Entresto 24 mg-26 mg oral tablet 1 tab, Tab, G-TUBE, Daily, 30 tab, 0 Refill(s), Route to Pharmacy Electronically, [facility], 185, 10/31/23 16:43:00 EST, Height/Length Dosing, cm, 131.4, 10/31/23 16:43:00 EST, Weight Dosing, kg Start Date: 11/05/23 Status: Ordered Glucometer 1, EA, N/A, Once, Use to test blood glucose. Dispense 30 day supply Diagnosis ICD10: E11, 100, EA, 0 Refill(s), Soft Stop, Route to Pharmacy Electronically, NCPDP_[id number], Constant Indicator, [facility], 185, 10/31/23 16:43:... Start Date: 11/07/23 Status: Ordered Glucose Test Strips 1, EA, N/A, ACHS, Use to test blood glucose. Dispense 30 day supply Diagnosis ICD10: E11, 200, EA, 0 Refill(s), Maintenance, Route to Pharmacy Electronically, NCPDP_[id number], Constant Indicator, [facility], 185, 10/31/23 16:4... Start Date: 11/07/23 Status: Ordered insulin glargine 100 units/mL subcutaneous solution 5 units, Indication: Hyperglycemia Injection-Insulin (soln), Subcutaneous, QHS, 15 mL, 0 Refill(s),Route to Pharmacy Electronically, [facility], 185, 10/31/23 16:43:00 EST, Height/Length Dosing, cm, 131.4, 10/31/23 16:43:00 EST, We... Start Date: 11/05/23 Status: Ordered insulin lispro 100 units/mL injectable solution Standard, Indication: Hyperglycemia Injection-Insulin (soln), Subcutaneous, TIDAC, 15 mL, 0 Refill(s), For BS <200 = 0 units BS 200-250= 2 units BS 251-300= 4 units BS 301-350= 6 units BS >350=8 units and call MD, Route to Pharmacy Electronically, ... Start Date: 11/05/23 Status: Ordered Insulin Pen Pitts 1, EA, N/A, ACHS, Use to administer insulin. Dispense 30 day supply Diagnosis ICD10: E11, 200, EA, 0 Refill(s), Maintenance, Route to Pharmacy Electronically, NCPDP_[id number], Constant Indicator, [facility], 185, 10/31/23 16:4... Start Date: 11/07/23 Status: Ordered Insulin Syringes/Pitts 1, EA, N/A, ACHS, Use to administer insulin. Dispense 30 day supply Diagnosis ICD10: E11, 200, EA, 0 Refill(s), Maintenance, Route to Pharmacy Electronically, NCPDP_[id number], Constant Indicator, [facility], 185, 10/31/23 16:4... Start Date: 11/07/23 Status: Ordered lactulose 10 g/15 mL oral syrup 20 gm = 30 mL, Syrup, Oral, Daily PRN, 300 mL, 0 Refill(s), Constipation, Route to Pharmacy Electronically, [facility], 185, 10/31/23 16:43:00 EST, Height/Length Dosing, cm, 131.4,10/31/23 16:43:00 EST, Weight Dosing, kg Start Date: 11/05/23 Status: Ordered Lancets for finger stick 1, EA, N/A, ACHS, Use to test blood glucose. Dispense 30 day supply Diagnosis ICD10: E11, 200, EA, 0 Refill(s), Maintenance, Route to Pharmacy Electronically, NCPDP_[id number], Constant Indicator, [facility], 185, 10/31/23 16:4... Start Date: 11/07/23 Status: Ordered lansoprazole 30 mg oral tablet, disintegrating 30 mg, 1 tab, Tab-Dis, G-TUBE, BID, 60 tab, 0 Refill(s), Route to Pharmacy Electronically, [facility], 185, 10/31/23 16:43:00 EST, Height/Length Dosing, cm, 131.4, 10/31/23 16:43:00 EST, Weight Dosing, kg Start Date: 11/05/23 Status: Ordered melatonin 3 mg oral tablet 9 mg = 3 tab, Tab, G-TUBE, QHS, 60 tab, 0 Refill(s), Route to Pharmacy Electronically, [facility], 185, 10/31/23 16:43:00 EST, Height/Length Dosing, cm, 131.4, 10/31/23 16:43:00 EST, Weight Dosing, kg Start Date: 11/05/23 Status: Ordered MiraLax oral powder for reconstitution 17 gm, Powder, Oral, Daily, 119 gm, 0 Refill(s), Route to Pharmacy Electronically, [facility], 185, 10/31/23 16:43:00 EST, Height/Length Dosing, cm, 131.4, 10/31/23 16:43:00 EST, Weight Dosing, kg Start Date: 11/05/23 Status: Ordered nicotine 7 mg/24 hr transdermal film, extended release 1 patch, Film, Transdermal, Daily, 30 patch, 0 Refill(s), Route to Pharmacy Electronically, [facility], 185, 10/31/23 16:43:00 EST, Height/Length Dosing, cm, 131.4, 10/31/23 16:43:00 EST, Weight Dosing, kg Start Date: 11/05/23 Status: Ordered nortriptyline 25 mg oral capsule 25 mg = 1 cap, Cap, G-TUBE, QHS, 30 cap, 0 Refill(s), Route to Pharmacy Electronically, [facility], 185, 10/31/23 16:43:00 EST, Height/Length Dosing, cm, 131.4, 10/31/23 16:43:00 EST, Weight Dosing, kg Start Date: 11/05/23 Status: Ordered Sharps Container 1, EA, N/A, Once, Use to test blood glucose. Dispense 30 day supply Diagnosis ICD10: E11, 100, EA, 0 Refill(s), Soft Stop, Route to Pharmacy Electronically, NCPDP_[id number], Constant Indicator, [facility], 185, 10/31/23 16:43:... Start Date: 11/07/23 Status: Ordered simethicone 80 mg oral tablet, chewable 80 mg = 1 tab, Tab-Chew, G-TUBE, q6hr PRN, 36 tab, 0 Refill(s), Gas or flatulence, Route to Pharmacy Electronically, [facility], 185, 10/31/23 16:43:00 EST, Height/Length Dosing, cm, 131.4, 10/31/23 16:43:00 EST, Weight Dosing, kg Start Date: 11/05/23 Status: Ordered spironolactone 25 mg oral tablet 25 mg = 1 tab, Tab, G-TUBE, Daily, 30 tab, 0 Refill(s), Route to Pharmacy Electronically, [facility], 185, 10/31/23 16:43:00 EST, Height/Length Dosing, cm, 131.4, 10/31/23 16:43:00EST, Weight Dosing, kg Start Date: 11/05/23 Status: Ordered torsemide 20 mg oral tablet 20 mg = 1 tab, Tab, G-TUBE, Daily PRN, 30 tab, 0 Refill(s), MD to specify parameters for use, Routeto Pharmacy Electronically, [facility], 185, 10/31/23 16:43:00 EST, Height/Length Dosing, cm, 131.4, 10/31/23 16:43:00 EST, Weight D... Start Date: 11/05/23 Status: Ordered Vitamin D3 25 mcg (1000 intl units) oral tablet 50 mcg = 2 tab, Tab, Oral, Daily, 60 tab, 0 Refill(s), Route to Pharmacy Electronically, [facility], 185, 10/31/23 16:43:00 EST, Height/Length Dosing, cm, 131.4, 10/31/23 16:43:00 EST, Weight Dosing, kg Start Date: 11/05/23 Status: Ordered Zetia 10 mg oral tablet 10 mg = 1 tab, Tab, G-TUBE, QHS, 30 tab, 0 Refill(s), Route to Pharmacy Electronically, [facility], 185, 10/31/23 16:43:00 EST, Height/Length Dosing, cm, 131.4, 10/31/23 16:43:00 EST, Weight Dosing, kg Start Date: 11/05/23 Status: Ordered Problem List Condition Confirmation Course Effective Dates Status H ealth Status Informant At risk of venous thromboembolus 1 Confirmed 10/25/23 Active Cognitive impairment Confirmed Active Dysphagia Confirmed Active Impaired functional endurance Confirmed Active Impaired functional mobility status Confirmed Active Self -care deficit Confirmed Active 1Problem added by Discern Expert Rule: EBN_VTERISKPROB_3 Results Laboratory List Name Date Glucose, POC 11/06/23 Glucose, POC 11/06/23 Automated Diff HSL 11/06/23 Complete Blood Count w/Auto Diff HSL 10/10 06/01 Comprehensive Metabolic Panel HSL 4 Glucose, POC 11/06/23 Automated Diff HSL 11/03/23 Complete Blood Count w/Auto Diff HSL 10/10 03/01 Comprehensive Metabolic Panel HSL 4 Automated Diff HSL 10/30/23 Complete Blood Count w/Auto Diff HSL 10/10 11/01 Comprehensive Metabolic Panel HSL 4 Magnesium HSL 10/25/23 Phosphorus HSL 10/25/23 Prealbumin HSL 10/25/23 Thyroid Stimulating Hormone HSL (TSH HSL ) 10/25/23 Vitamin D 25OH HSL 10/25/23 Most recent to oldest [Reference Range]: 1 2 3 Creatinine Level 0.90 mg/dL (11/06/23 6:49 AM) 0.90 mg/dL (11/03/23 6:52 AM) 1.10 mg/dL (10/30/23 7:00 AM) Estimated Creatinine Clearance 111.67 mL/min 1 (11/06/23 6:49 AM) 111.67 mL/min 2 (11/03/23 6:52 AM) 91.37 mL/min 3 (10/31/23 4:43 PM) Glucose POC RALS [74-106 mg/dL] 102 mg/dL (11/06/23 5:33 PM) 121 mg/dL *HI* (11/06/23 12:49 PM) 119 mg/dL *HI* (11/06/23 6:34 AM) Blood Glucose Stick Site Finger (10/26/23 11:26 PM) Corrected WBC HSL [4-12 x10(3)/mcL] 6 x10(3)/mcL (11/06/23 6:49 AM) 7 x10(3)/mcL (11/03/23 6:52 AM) 7 x10(3)/mcL (10/30/23 7:00 AM) WBC HSL [4.4-11.6 10^3/uL] 6.1 10^3/uL (11/06/23 6:49 AM) 6.7 10^3/uL (11/03/23 6:52 AM) 6.8 10^3/uL (10/30/23 7:00 AM) RBC HSL [04.10-05.80 10^3/uL] 05.42 10^3/uL (11/06/23 6:49 AM) 05.62 10^3/uL (11/03/23 6:52 AM) 05.85 10^3/uL *HI* (10/30/23 7:00 AM) Hemoglobin HSL [13.4-17.6 g/dL] 15.1 g/dL (11/06/23 6:49 AM) 15.6 g/dL (11/03/23 6:52 AM) 16.1 g/dL (10/30/23 7:00 AM) Hematocrit HSL [39.9-53.1 %] 42.8 % (11/06/23 6:49 AM) 44.8 % (11/03/23 6:52 AM) 47.1 % (10/30/23 7:00 AM) MCV HSL [79.9-103.5 fL] 79.0 fL *LOW* (11/06/23 6:49 AM) 79.8 fL *LOW* (11/03/23 6:52 AM) 80.5 fL (10/30/23 7:00 AM) MCH HSL [25.9-34.1 g/dL] 27.9 g/dL (11/06/23 6:49 AM) 27.7 g/dL (11/03/23 6:52 AM) 27.5 g/dL (10/30/23 7:00 AM) MCHC HSL [31.9-35.4 g/dL] 35.3 g/dL (11/06/23 6:49 AM) 34.7 g/dL (11/03/23 6:52 AM) 34.2 g/dL (10/30/23 7:00 AM) Platelet HSL [149-451 10^3/uL] 152 10^3/uL (11/06/23 6:49 AM) 172 10^3/uL (11/03/23 6:52 AM) 170 10^3/uL (10/30/23 7:00 AM) RDW-CV% HSL [11.5-14.5 %] 13.3 % (11/06/23 6:49 AM) 13.1 % (11/03/23 6:52 AM) 13.2 % (10/30/23 7:00 AM) RDW-SD HSL [35.5-44.0 fL] 37.2 fL (11/06/23:49 AM) 37.2 fL (11/03/23 6:52 AM) 37.6 fL (10/30/23 7:00 AM) MPV HSL [8.9-13.1 fL] 9.2 fL (11/06/23 6:49 AM) 10.3 fL (11/03/23 6:52 AM) 9.8 fL (10/30/23 7:00 AM) Neutrophil Auto HSL [39.6-77.4 %] 52.8 % (11/06/23 6:49 AM) 55.3 % (11/03/23 6:52 AM) 50.1 % (10/30/23 7:00 AM) Lymphocyte Auto HSL [17.7-51.9 %] 35.7 % (11/06/23 6:49 AM) 35.4 % (11/03/23 6:52 AM) 39.1 % (10/30/23 7:00 AM) Monocyte Auto HSL [2.9-10.5 %] 8.0 % (11/06/23 6:49 AM) 5.7 % (11/03/23 6:52 AM) 6.2 % (10/30/23 7:00 AM) Eosinophil Auto HSL [0.0-7.1 %] 2.7 % (11/06/23 6:49 AM) 2.6 % (11/03/23 6:52 AM) 3.5 % (10/30/23 7:00 AM) Basophil Auto HSL [0.0-9.1 %] 0.8 % (11/06/23 6:49 AM) 1.0 % (11/03/23 6:52 AM) 1.1 % (10/30/23 7:00 AM) Neutrophil Absolute HSL [1.1-5.4 10^3/uL] 3.2 10^3/uL (11/06/23 6:49 AM) 3.7 10^3/uL (11/03/23 6:52 AM) 3.4 10^3/uL (10/30/23 7:00 AM) Lymphocyte Absolute HSL [0.7-2.8 10^3/uL] 2.2 10^3/uL (11/06/23 6:49 AM) 2.4 10^3/uL (11/03/23 6:52 AM) 2.7 10^3/uL (10/30/23 7:00 AM) Monocyte Absolute HSL [0.0-1.1 10^3/uL] 0.5 10^3/uL (11/06/23 6:49 AM) 0.4 10^3/uL (11/03/23 6:52 AM) 0.4 10^3/uL (10/30/23 7:00 AM) Eosinophil Absolute HSL [0.0-0.5 10^3/uL] 0.2 10^3/uL (11/06/23 6:49 AM) 0.2 10^3/uL (11/03/23 6:52 AM) 0.2 10^3/uL (10/30/23 7:00 AM) Basophil Absolute HSL [0.00-0.06 10^3/uL] 0.10 10^3/uL *HI* (11/06/23 6:49 AM) 0.10 10^3/uL *HI* (11/03/23 6:52 AM) 0.10 10^3/uL *HI* (10/30/23 7:00 AM) Nucleated RBC HSL 0.1 *NA* (11/06/23 6:49 AM) 0.2 *NA* (11/03/23 6:52 AM) 0.3 *NA* (10/30/23 7:00 AM) Sodium HSL [135.9-146.1 mEq/L] 138.0 mEq/L (11/06/23 6:49 AM) 136.0 mEq/L (11/03/23 6:52 AM) 137.0 mEq/L (10/30/23 7:00 AM) Potassium HSL [3.4-4.6 mEq/L] 4.0 mEq/L (11/06/23 6:49 AM) 3.9 mEq/L (11/03/23 6:52 AM) 4.3 mEq/L (10/30/23 7:00 AM) Chloride HSL [95.9-106.1 mEq/L] 104.0 mEq/L (11/06/23 6:49 AM) 103.0 mEq/L (11/03/23:52 AM) 99.0 mEq/L (10/30/23 7:00 AM) Carbon Dioxide HSL [21.9-29.1 mEq/L] 26.0 mEq/L (11/06/23:49 AM) 26.0 mEq/L (11/03/23:52 AM) 29.0 mEq/L (10/30/23 7:00 AM) Anion Gap HSL [8-16 mmol/L] 12 mmol/L (11/06/23:49 AM) 11 mmol/L (11/03/23:52 AM) 13 mmol/L (10/30/23 7:00 AM) Glucose HSL [74.9-115.1 mg/dL] 116.0 mg/dL *HI* (11/06/23 6:49 AM) 157.0 mg/dL *HI* (11/03/23 6:52 AM) 134.0 mg/dL *HI* (10/30/23 7:00 AM) BUN HSL [10.9-23.1 mg/dL] 11.0 mg/dL (11/06/23 6:49 AM) 12.0 mg/dL (11/03/23 6:52 AM) 20.0 mg/dL (10/30/23 7:00 AM) Creatinine HSL [0.6-1.6 mg/dL] 0.9 mg/dL (11/06/23 6:49 AM) 0.9 mg/dL (11/03/23 6:52 AM) 1.1 mg/dL (10/30/23 7:00 AM) eGFR-AA HSL 75 *NA* (11/06/23 6:49 AM) 73 *NA* (11/03/23 6:52 AM) 63 *NA* (10/30/23 7:00 AM) eGFR-Non AA HSL 89 *NA* (11/06/23 6:49 AM) 86 *NA* (11/03/23 6:52 AM) 74 *NA* (10/30/23 7:00 AM) BUN/Creat Ratio HSL [5-20 ratio] 12 ratio (11/06/23 6:49 AM) 13 ratio (11/03/23 6:52 AM) 18 ratio (10/30/23 7:00 AM) Calcium Total HSL [8.9-11.1 mg/dL] 9.4 mg/dL (11/06/23 6:49 AM) 9.4 mg/dL (11/03/23 6:52 AM) 10.2 mg/dL (10/30/23 7:00 AM) Albumin HSL [3.4-5.1 g/dL] 3.7 g/dL (11/06/23 6:49 AM) 3.8 g/dL (11/03/23 6:52 AM) 4.1 g/dL (10/30/23 7:00 AM) Prealbumin HSL [14.9-36.1 mg/dL] 21.9 mg/dL (10/25/23 6:03 AM) Protein Total HSL [5.9-8.4 g/dL] 6.5 g/dL (11/06/23 6:49 AM) 6.7 g/dL (11/03/23 6:52 AM) 7.4 g/dL (10/30/23 7:00 AM) Bilirubin Total HSL [0.1-1.4 mg/dL] 0.5 mg/dL (11/06/23 6:49 AM) 0.5 mg/dL (11/03/23 6:52 AM) 0.7 mg/dL (10/30/23 7:00 AM) Magnesium HSL [1.6-2.3 mg/dL] 1.9 mg/dL (10/25/23 6:03 AM) Phosphorus HSL [3.3-4.6 mg/dL] 4.3 mg/dL (10/25/23 6:03 AM) Alkaline Phosphatase HSL [19.9-90.1 IU/L] 67.0 IU/L (11/06/23 6:49 AM) 63.0 IU/L (11/03/23 6:52 AM) 70.0 IU/L (10/30/23 7:00 AM) AST HSL [9.9-59.1 IU/L] 16.0 IU/L (11/06/23 6:49 AM) 21.0 IU/L (11/03/23 6:52 AM) 20.0 IU/L (10/30/23 7:00 AM) ALT HSL [9.9-40.1 IU/L] 29.0 IU/L (11/06/23 6:49 AM) 36.0 IU/L (11/03/23 6:52 AM) 29.0 IU/L (10/30/23 7:00 AM) Thyroid Stimulating Hormone HSL [0.34-7.01 mIU/mL] 0.91 mIU/mL (10/25/23 6:03 AM) Blood Glucose, Capillary [74-106 mg/dL] 120 mg/dL *HI* (11/07/23 6:25 AM) 149 mg/dL 4 *HI* (11/06/23 10:23 PM) 107 mg/dL *HI* (11/01/23 12:27 AM) Vitamin D 25OH HSL [19.9-40.1 ng/mL] 18.0 ng/mL *LOW* (10/25/23 6:03 AM) 1Result Comment: Calculated using method: Cockcroft-Gault (default) Calculated using Formula : (140-ageInYears)*IBW/(72*scrInMGperDL) Age: 48 (43575815812.0) Serum Creatinine: 0.90 mg/dL (77576035144.0) Height: 185 cm (58319357721.0) Weight: 131.4 kg (IBW = 79.520 kg) 2Result Comment: Calculated using method: Cockcroft-Gault (default) Calculated using Formula : (140-ageInYears)*IBW/(72*scrInMGperDL) Age: 48 (06378596843.0) Serum Creatinine: 0.90 mg/dL (04988776067.0) Height: 185 cm (01834910406.0) Weight: 131.4 kg (IBW = 79.520 kg) 3Result Comment: Calculated using method: Cockcroft-Gault (default) Calculated using Formula : (140-ageInYears)*IBW/(72*scrInMGperDL) Age: 48 (63773327245.0) Serum Creatinine: 1.10 mg/dL (34968179289.0) Height: 185 cm (04456490604.0) Weight: 131.4 kg (IBW = 79.520 kg) 4Result Comment: meter would not scan armband, MRN was put in manually Vital Signs Most recent to oldest [Reference Range]: 1 2 3 Temperature Oral F [96.4-99.1 DegF] 97.5 DegF (11/07/23 7:12 AM) 98.4 DegF (11/06/23 7:15 PM) 97.6 DegF (11/06/23 7:11 AM) Peripheral Pulse Rate [60-100 bpm] 80 bpm (11/07/23 7:13 AM) 90 bpm (11/06/23:15 PM) 96 bpm (11/06/23 7:12 AM) Respiratory Rate [14-20 br/min] 16 br/min (11/07/23 7:12 AM) 18 br/min (11/06/23 7:14 PM) 18 br/min (11/06/23 7:11 AM) Blood Pressure [90-140/60-90 mmHg] 116/77mmHg (11/07/23 7:12 AM) 101/62mmHg (11/06/23 7:12 AM) Systolic Blood Pressure [90-140 mmHg] 96 mmHg (11/06/23 7:15 PM) Diastolic Blood Pressure [60-90 mmHg] 59 mmHg *LOW* (11/06/23 7:15 PM) Mean Arterial Pressure, Cuff 90 mmHg (11/07/23 7:12 AM) 71 mmHg (11/06/23:15 PM) 75 mmHg (11/06/23 7:12 AM) Vital Signs Additional Information seated in w/c: (Abvoe) (10/25/23 9:00 AM) Systolic Blood Pressure Post [90-140 mmHg] 103 mmHg (10/28/23 10:00 AM) Diastolic Blood Pressure Post [60-90 mmHg] 72 mmHg (10/28/23 10:00 AM) Temperature Oral 36.4 DegC 1 (11/07/23 7:12 AM) 36.9 DegC 2 (11/06/23 7:15 PM) 36.4 DegC 3 (11/06/23 7:11 AM) 1Result Comment: Charted by SYSTEM secondary to charting of Temperature Oral F on a Vitals Monitor. Rule: VITALSLINK_CALCULATIONS_2 2Result Comment: Charted by SYSTEM secondary to charting of Temperature Oral F on a Vitals Monitor. Rule: VITALSLINK_CALCULATIONS_2 3Result Comment: Charted by SYSTEM secondary to charting of Temperature Oral F on a Vitals Monitor. Rule: VITALSLINK_CALCULATIONS_2
--- NOTE | 2024-07-13 10:47 | PC.NURSE ---
arrived by w/c from front lobby admissions
--- NOTE | 2024-07-13 10:58 | EXP.HP ---
History of Present Illness *Admission Date: 07/13/24 *Reason for visit:: dyspnea, leg swelling *History of present illness: Mr. Campbell is a 49-year-old male with previous history of heart failure with reduced ejection fraction EF 40 to 45%. Has BiV AICD in place, history of nonischemic cardiomyopathy, NOEMI, diabetes. Presented to cardiology clinic with worsening 20 pound weight gain over the past few weeks. Was seen last week and encouraged to come to the hospital for admission, patient preferred to attempt outpatient management with diuresis. Unfortunately has not diuresed well and is continued to have dyspnea with exertion, orthopnea, lower extremity edema. Also noted to be in A-fib with RVR. Was amenable to admission today after much discussion. Medicine was consulted for admission and further care. As an outpatient today echo obtained showing further reduction in his ejection fraction to 10 to 15%. Given his severely dilated LV and worsening heart failure, cardiology request admission for diuresis and aggressive management. After arrival to the floor, review of chart shows patient's weight gain of 10 kg (approximately 20 pounds). He stable on room air at this time. Denies any chest pain. Does report just feeling weak and dyspneic. Has had to sleep in his recliner due to inability to lay flat. No nausea or vomiting. [facility] Disclaimer: The information contained in this section may have been updated after the patient was seen, as this information can be updated by other users. Medical History Pacemaker CVA (cerebral vascular accident) History of gastrostomy tube placement Elevated serum creatinine HFrEF (heart failure with reduced ejection fraction) Orthopnea PAF (paroxysmal atrial fibrillation) V tach PAD (peripheral artery disease) Abnormal ankle brachial index (FRANCIA) Family History Other No significant family history Social History Smoking Status: Former smoker tobacco type: cigarettes packs per day: 1 second hand exposure: Yes alcohol intake: never current occupational status: employed Travel in the last 8 weeks: Inside the [place] household members: none housing: house current occupation: substance abuse counselor current occupational exposures/hazards: No caffeine: Yes Other Medical History Have you received the Flu Vaccine for this season: No Have you received the Pneumonia Vaccine: No Review of Systems Review of Systems Review of systems (narrative): 14 point review of systems performed, pertinent positives and negatives as per HPI Meds Home Medications and Allergies Home Medications ?Medication ?Instructions ?Recorded ?Confirmed ?Type ergocalciferol (vitamin D2) 1,250 1,250 mcg PO WEEKLY 04/23/21 07/13/24 History mcg (50,000 unit) capsule apixaban 5 mg tablet (Eliquis) 5 mg PO BID 07/01/24 07/13/24 History atorvastatin 80 mg tablet 80 mg PO HS 07/01/24 07/13/24 History bumetanide 2 mg tablet 2 mg PO BID #60 tabs 07/01/24 07/13/24 Rx colchicine 0.6 mg tablet 0.6 mg PO BID PRN gout 07/01/24 07/13/24 History melatonin 3 mg tablet 3 mg PO HS 07/01/24 07/13/24 History nortriptyline 50 mg capsule 50 mg PO HS 07/01/24 07/13/24 History carvedilol 12.5 mg tablet 12.5 mg PO BID #60 tabs 07/06/24 07/13/24 Rx ezetimibe 10 mg tablet 10 mg PO DAILY 07/13/24 07/13/24 History lansoprazole 30 mg delayed 30 mg PO DAILY 07/13/24 07/13/24 History release,disintegrating tablet metolazone 2.5 mg tablet 2.5 mg PO Q48H 07/13/24 07/13/24 History sacubitril 24 mg-valsartan 26 mg 1 tab PO BID 07/13/24 07/13/24 History tablet (Entresto) spironolactone 25 mg tablet 25 mg PO DAILY 07/13/24 07/13/24 History New Prescriptions to Start Prescriptions: Allergies Allergy/AdvReac Type Severity Reaction Status Date / Time No Known Allergies Allergy Verified 07/13/24 09:25 Exam Constitutional Constitutional: no acute distress, obese, chronically ill appearing and cooperative *Routine HEENT Exam Head: Present normocephalic Eye: Present EOMI and PERRL ENT: Present mucous membranes moist *Routine Neck Exam Neck: Present supple; Absent lymphadenopathy *Routine Respiratory Exam Respiratory: Present CTA bilaterally; Absent rhonchi, wheezes or crackles *Routine Cardiovascular Exam Cardiovascular: Present RRR *Routine Abdominal Exam Abdominal: Present soft and normoactive bowel sounds; Absent tenderness *Routine Rectal Exam Rectal:: deferred *Routine Genitalia Exam Genitalia:: deferred *Routine Extremities Exam Extremities: Present edema (2+ to knees); Absent cyanosis or clubbing *Routine Skin Exam Skin: Present intact and warm; Absent rash *Routine Neurological Exam Neurological: Present alert, oriented X3 and moving all extremities; Absent altered mental status Assessment and Plan *Assessment and plan (1) Acute on chronic HFrEF (heart failure with reduced ejection fraction): Status: Acute Category: Medical Code(s): I50.23 - Acute on chronic systolic (congestive) heart failure (2) Atrial fibrillation with RVR: Status: Acute Category: Medical Code(s): I48.91 - Unspecified atrial fibrillation (3) PND (paroxysmal nocturnal dyspnea): Status: Acute Category: Medical Code(s): R06.00 - Dyspnea, unspecified (4) Automatic implantable cardioverter-defibrillator in situ: Status: Chronic Category: Medical Code(s): Z95.810 - Presence of automatic (implantable) cardiac defibrillator (5) Bilateral lower extremity edema: Status: Acute Category: Medical Code(s): R60.0 - Localized edema (6) HLD (hyperlipidemia): Status: Chronic Qualifiers: Hyperlipidemia type: mixed hyperlipidemia Qualified Code(s): E78.2 - Mixed hyperlipidemia Category: Medical Code(s): E78.5 - Hyperlipidemia, unspecified (7) Obstructive sleep apnea: Status: Chronic Category: Medical Code(s): G47.33 - Obstructive sleep apnea (adult) (pediatric) (8) Type 2 diabetes mellitus: Status: Chronic Qualifiers: Diabetes mellitus complication status: without complication Diabetes mellitus laborer marine terminal insulin use: without fci use Qualified Code(s): E11.9 - Type 2 diabetes mellitus without complications Category: Medical Code(s): E11.9 - Type 2 diabetes mellitus without complications (9) Obesity: Status: Chronic Qualifiers: Obesity type: due to excess calories Serious obesity comorbidity presence: without serious comorbidity Body mass index: BMI 40.0-44.9 Obesity classification: adult class 3 (BMI >= 40) Qualified Code(s): E66.01 - Morbid (severe) obesity due to excess calories; Z68.41 - Body mass index (BMI) 40.0-44.9, adult Category: Medical Code(s): E66.9 - Obesity, unspecified (10) Dilated cardiomyopathy: Status: Chronic Category: Medical Code(s): I42.0 - Dilated cardiomyopathy Plan 49-year-old male with known history of heart failure with reduced ejection fraction. Has had progressive swelling and edema with orthopnea. Seen in cardiology clinic today, appears to have worsening cardiac function and volume overload. Discussed case with cardiology PA, request admission for diuresis and further inpatient management. I agreed to admit for further treatment. Initiated on Bumex drip. Necessitating ICU level care due to likelihood of needing milrinone drip along with close monitoring on telemetry and high risk of decompensation. Preliminary echo shows EF 10 to 15%. Problems addressed as follows: Acute on chronic HFrEF -Worsening EF with repeat echo from today showing EF 10 to 15% -Discussed case with cardiology, recommend Bumex drip at 0.5 mg/h. Monitor output. Goal negative fluid status -BNP elevated at just under 8000. -Initiate goal-directed therapy with spironolactone 25 mg daily, Entresto 24/26 mg 1 tablet twice daily, potassium replacement with 20 mEq orally 4 times a day. Mood disorder: Continue nortriptyline 25 mg nightly Sleep disorder: Continue melatonin 2.5 mg nightly Hyperlipidemia: Continue Lipitor 80 mg nightly GERD: Continue pantoprazole 40 mg nightly A. fib with RVR -hold eliquis for possible upgrade to [employer]-D (QRS 124 ms), initiate Lovenox 1 mg/kg twice daily -Holding on rate controlling medication at this time unless patient becomes frankly hypotensive or unstable History of CVA, 09/2023 -careful use of rate control meds due to resurgence of CVA symptoms with low BP Type 2 diabetes -A1c obtained, 8.0. Continue sliding scale insulin with fingersticks ACHS -Initiate Jardiance 10 mg daily CKD, stage 3b: At baseline with creatinine 1.7, BUN 31. Appears at baseline. Potassium low at 3.1, replacing orally as above. Magnesium low at 1.2. Will replace with 2 g IV twice. Repeat CBC, CMP, magnesium ordered for the morning Dyslipidemia LDL 79, on statin and zetia, hold for now Full code Holding Eliquis, Lovenox 1 mg/kg twice daily Cardiac diet, n.p.o. at midnight
[2024-07-13 11:23] LABS: Basophils # 0.1 K/mm3 (0-0.2); Basophils % 1.7 % (0.1-2.0); Eosinophils # 0.1 K/mm3 (0.0-0.4); Eosinophils % 1.3 % (0.1-12.0); Hematocrit 54.2 % (42.0-52.0); Lymphocytes % 44.9 % (10-50); Mean Corpuscular HGB Conc 33.9 g/dL (31.8-35.4); Mean Corpuscular Hemoglobin 26.2 pg (27.0-31.2); Mean Corpuscular Volume 77.3 fl (80-94); Monocytes # 0.3 K/mm3 (0.1-1.0); Monocytes % 6.2 % (1.7-9.3); Neutrophils % 45.9 % (37.0-80.0); Platelet Count 163 K/mm3 (142-424); Red Cell Distribution Width 16.2 % (11.5-17.5); White Blood Count 4.4 K/mm3 (4.8-10.8)
[2024-07-13] MEDS: BUMETANIDE 10 MG in 0.9 % SODIUM CHLORIDE 60 ML 5 MG IV (11:27)
[2024-07-13 11:31] LABS: Albumin Level 3.9 g/dl (3.5-5.0); Chloride 95 mmol/L (98-107); Potassium 3.1 mmoL/L (3.5-5.1); Sodium 136 mmol/L (136-145)
[2024-07-13 11:34] LABS: Alanine Aminotransferase 35 U/L (12-78); Albumin/Globulin Ratio 1.3 (1.1-1.8); Alkaline Phosphatase 121 U/L (38-126); Anion Gap 13.1 mEq/L (5-15); Aspartate Amino Transferase 39 U/L (17-59); Bilirubin,Total 1.9 mg/dl (0.2-1.3); Blood Urea Nitrogen 31 mg/dl (9-20); Carbon Dioxide 31 mmol/L (22.0-30.0); Creatinine Clearance Estimated 90 mL/min (50-200); Estimated Glomerular Filt Rate 43 ml/min (>60); GFR (African American) 52 ML/MIN (>60); Globulin 2.9 g/dL (1.3-3.2); Total Protein,Serum 6.8 g/dl (6.3-8.2)
--- NOTE | 2024-07-13 11:34 | EXP.CARD.CON ---
History of Present Illness History of Present Illness Consult date: 07/13/24 Requesting physician: Boston Arnold Consult reason: atrial fibrillation and congestive heart failure Chief complaint: SOA, edema Additional Medical History:: 1. Normal Coronaries 2016 2. HFrEF A. Worsening LVEF, 07/2024 B. AICD, implanted in 2018, dual-chamber 3. PAD A. Bilateral occluded SFA's with 3 vessel runoff below the knee. medical management 01/2020 4. Hyperlipidemia A. On statin therapy 5. History of CVA affecting ability to walk, swallow which improved with rehab A. Follows with [facility] 6. NOEMI, on CPAP therapy 7. History of A-fib A. anticoagulation with Eliquis 8. History of V Tach A. history of ablation by Dr. Cardenas, [place], [place] 9. History of gout A. On colchicine 10. Diabetes mellitus History of present illness: Pt is here for 1 week follow up. Patient has a hx of NICM with an previous EF of 40-45 s/p BiV acid. Patient presented to cardiology clinic 2 weeks with a complaint of a 20 pound weight gain, shortness of breath, orthopnea and lower extremity edema. Patient was also noted to be in A-fib RVR. At that time patient refused admission to hospital and diuretics were increased to Bumex 2 mg p.o. twice daily. Patient returned to clinic last week for reevaluation and reported no significant weight loss or increase in urination. Patient was still in A-fib RVR. Patient declined admission a second time. Metolazone was added every other day to Bumex 2 mg p.o. daily and patient was scheduled for outpatient echo which was performed today. Preliminary report shows an estimated EF of 10% down from 40 to 45%, severely dilated LV and RV dysfunction with a pleural effusion noted. Patient is in A-fib RVR at a rate of 139 today. Weight is down 14 pounds. Still reports shortness of breath with minimal activity and lower extremity edema. Pt c/o shortness of breath Pt c/o swelling in lower legs and feet Pt c/o fatigue The above per Celina Fontenot per office visit today. Events above confirmed with patient. Maintains compliance with meds except the increase in coreg brought about weakness and fatigue with low BP. [facility] Disclaimer: The information contained in this section may have been updated after the patient was seen, as this information can be updated by other users. Medical History (Updated 07/13/24 @ 11:43 by HUGH Finn) Pacemaker CVA (cerebral vascular accident) History of gastrostomy tube placement Elevated serum creatinine HFrEF (heart failure with reduced ejection fraction) Orthopnea PAF (paroxysmal atrial fibrillation) V tach PAD (peripheral artery disease) Abnormal ankle brachial index (FRANCIA) Family History (Updated 07/13/24 @ 11:25 by Sandy Baez, YONY) Other No significant family history Social History (Updated 07/13/24 @ 11:26 by Sandy Baez RN) Smoking Status: Former smoker tobacco type: cigarettes packs per day: 1 second hand exposure: Yes alcohol intake: never current occupational status: employed Travel in the last 8 weeks: Inside the [place] household members: none housing: house current occupation: substance abuse counselor current occupational exposures/hazards: No caffeine: Yes Review of Systems Review of Systems Review of systems:: pertinent systems reviewed and negative unless documented below Constitutional Constitutional: Reports fatigue *Cardiovascular Cardiovascular: Denies chest pain, Reports dyspnea and Reports dyspnea on exertion *Respiratory Respiratory: Reports dyspnea and Reports dyspnea on exertion *Neurologic Comments: Difficulty swallowing since CVA Endocrine Endocrine: Reports fatigue Exam Data for Last 24 hours Vital signs and Labs for Last 24 Hours: Temp Pulse Resp BP O2 Del Method 98.2 F 124 H 22 110/67 Room Air 07/13/24 11:05 07/13/24 11:05 07/13/24 11:05 07/13/24 11:05 07/13/24 11:05 Laboratory Results - last 24 hr 07/13/24 11:15: Sodium 136, Potassium 3.1 L, Chloride 95 L, Albumin 3.9 I & O for Last 24 hours: Intake & Output 07/10/24 07/11/24 07/12/24 07/13/24 11:59 10:59 11:59 11:59 Output Total 0 / 0 Balance 0 / 0 Weight 269 lb 6 oz Constitutional Constitutional: mild distress *Routine Respiratory Exam Respiratory: Present decreased breath sounds and crackles; Absent rhonchi or wheezes *Routine Cardiovascular Exam Cardiovascular: Present tachycardia and irregularly irregular *Routine Extremities Exam Extremities: Present edema *Routine Neurological Exam Neurological: Present alert, oriented X3 and CN II-XII intact Meds Home Medications and Allergies Home Medications ?Medication ?Instructions ?Recorded ?Confirmed ?Type ergocalciferol (vitamin D2) 1,250 1,250 mcg PO WEEKLY 04/23/21 07/13/24 History mcg (50,000 unit) capsule apixaban 5 mg tablet (Eliquis) 5 mg PO BID 07/01/24 07/13/24 History atorvastatin 80 mg tablet 80 mg PO HS 07/01/24 07/13/24 History bumetanide 2 mg tablet 2 mg PO BID #60 tabs 07/01/24 07/13/24 Rx colchicine 0.6 mg tablet 0.6 mg PO BID PRN gout 07/01/24 07/13/24 History melatonin 3 mg tablet 3 mg PO HS 07/01/24 07/13/24 History nortriptyline 50 mg capsule 50 mg PO HS 07/01/24 07/13/24 History carvedilol 12.5 mg tablet 12.5 mg PO BID #60 tabs 07/06/24 07/13/24 Rx ezetimibe 10 mg tablet 10 mg PO DAILY 07/13/24 07/13/24 History lansoprazole 30 mg delayed 30 mg PO DAILY 07/13/24 07/13/24 History release,disintegrating tablet metolazone 2.5 mg tablet 2.5 mg PO Q48H 07/13/24 07/13/24 History sacubitril 24 mg-valsartan 26 mg 1 tab PO BID 07/13/24 07/13/24 History tablet (Entresto) spironolactone 25 mg tablet 25 mg PO DAILY 07/13/24 07/13/24 History New Prescriptions to Start Prescriptions: Allergies Allergy/AdvReac Type Severity Reaction Status Date / Time No Known Allergies Allergy Verified 07/13/24 09:25 Assessment and Plan *Assessment and plan (1) Acute on chronic HFrEF (heart failure with reduced ejection fraction): Status: Acute Category: Medical Code(s): I50.23 - Acute on chronic systolic (congestive) heart failure (2) PND (paroxysmal nocturnal dyspnea): Status: Acute Category: Medical Code(s): R06.00 - Dyspnea, unspecified (3) Atrial fibrillation with RVR: Status: Acute Category: Medical Code(s): I48.91 - Unspecified atrial fibrillation (4) Bilateral lower extremity edema: Status: Acute Category: Medical Code(s): R60.0 - Localized edema (5) Automatic implantable cardioverter-defibrillator in situ: Status: Chronic Category: Medical Code(s): Z95.810 - Presence of automatic (implantable) cardiac defibrillator (6) Obstructive sleep apnea: Status: Chronic Category: Medical Code(s): G47.33 - Obstructive sleep apnea (adult) (pediatric) (7) Type 2 diabetes mellitus: Status: Chronic Qualifiers: Diabetes mellitus complication status: without complication Diabetes mellitus echocardiography technologist insulin use: without chcf use Qualified Code(s): E11.9 - Type 2 diabetes mellitus without complications Category: Medical Code(s): E11.9 - Type 2 diabetes mellitus without complications Plan 1. HFrEF, acute on chronic exacerbation with worsening LVEF by echo today (prelim report showing EF about 10%) -admitted for IV bumex drip -monitor I/O and electrolytes -BNP 7920 2. A. fib with RVR -hold eliquis for possible upgrade to PLASMA CENTER NURSE-D (QRS 124 ms) -use lovenox or heparin drip 3. CVA, 09/2023 -careful use of rate control meds due to resurgence of CVA symptoms with low BP 4. Elevated troponins likely due to strain from HFrEF -history of normal coronaries in 2017 5. DM, type 2 -defer to Dr. Arnold -add jardiance if possible 6. NOEMI -currently not using CPAP due to intolerance after wt loss associated with decreased food intake related to CVA 7. CKD, stage 3b -Cr 1.7 with GFR 43 8. Hypokalemia -K 3.1 -start replacement 9. Dyslipidemia LDL 79 on statin and zetia, hold for now Diuresis Hold eliquis and use lovenox for possible procedure Discussed upgrade of defib to PLASMA CENTER NURSE-D Consider inotrope if urine output minimal. Does not appear to be in cardiogenic shock at this time.
[2024-07-13 11:35] LABS: Calcium 8.7 mg/dl (8.4-10.2); Glucose 154 mg/dl (74-100); Magnesium 1.2 mg/dl (1.6-2.3)
[2024-07-13 11:46] LABS: Troponin I 0.09 ng/ml (0.00-0.034)
--- NOTE | 2024-07-13 11:55 | HMH.PHAINT1 ---
Pharmacy Intervention Comments: Home medication list verified using list from outpatient pharmacy
[2024-07-13 12:05] LABS: Red Blood Count 7.01 M/mm3 (4.60-6.20)
[2024-07-13 12:39] LABS: INR 1.51 (0.9-1.1); Prothrombin Time 16.2 seconds (10.1-12.5)
[2024-07-13 12:58] LABS: Hemoglobin 18.3 g/dL (14.1-18.0)
[2024-07-13] MEDS: MAGNESIUM SULFATE IN WATER 2 GM/50 ML PIGGYBACK IV ×2 (14:14→20:06)
[2024-07-13 14:46] LABS: Troponin I 0.08 ng/ml (0.00-0.034)
--- NOTE | 2024-07-13 15:51 | PC.NURSE ---
pt currently resting supine in bed. a&o. no complaints of pain. bumex drip infusing @5ml/hr. pt has only had 300ml out so far this shift. pt voids per urinal. tolerating ra with sats >90%. Afib on monitor. HR ranging between 100-120. 2+ edema noted to the lower extremities. no needs at this time. bed in low and locked position. call light within reach.
[2024-07-13] MEDS: POTASSIUM CHLORIDE 20MEQ TAB 20 MEQ PO ×2 (16:23→20:09)
[2024-07-13 17:46] LABS: Troponin I 0.08 ng/ml (0.00-0.034)
[2024-07-13] MEDS: ENOXAPARIN 120MG/0.8ML SYRINGE 120 MG SUBCUT (18:09)
[2024-07-13] MEDS: humaLOG 100 UNITS/ML 10ML VIAL (SSI) SUBCUT (20:07)
[2024-07-13] MEDS: PANTOPRAZOLE 40MG TABLET 40 MG PO (20:08)
[2024-07-13] MEDS: ATORVASTATIN 40MG TABLET 80 MG PO (20:08)
[2024-07-13] MEDS: SACUBITRIL/VALSARTAN 24-26MG TABLET 1 EACH PO (20:09)
[2024-07-13] MEDS: MELATONIN 5MG TABLET 2.5 MG PO (23:59)
[2024-07-14] VITALS (21 sets, daily range): BP systolic 85–153; BP diastolic 51–85; PULSE 105–140; RESP 16–24; TEMP 36.6–36.9; O2SAT 90–99; BMI 36.6
--- NOTE | 2024-07-14 | IR_ITS ---
APPROVED REPORT Patient Location: Inpatient Superintendent Pier: JANELL De La Torre RT (R) PROCEDURES Selective coronary angiogram INDICATION New onset cardiomyopathy Informed consent was obtained prior to the procedure. COMPLICATIONS None Estimated Blood Loss: Less than 10 mls TECHNIQUE One percent lidocaine used to anesthetize the right anterior aspect of the wrist. The right radial artery was accessed via the Seldinger technique. A 6 Lebanese sheath was placed in the right radial artery. 2.5 mg of Verapamil, 800 mcg of nitroglycerin, 1mg Lidocaine and 5000 U Heparin were given through the arterial sheath. The 6 Lebanese JL 3 guide catheter was used to perform selective coronary angiogram. At the end of the procedure the sheath was removed good hemostasis was achieved using Traclet band, patient was transferred to the postop holding area in stable condition. ANGIOGRAPHIC RESULTS The left main artery Normal The left anterior descending artery Mild 10% luminal regularities The circumflex artery Dominant and has an ostial 40% stenosis in a large first obtuse marginal artery The right coronary artery Nondominant yet still medium in size with a distal concentric 80% stenosis The DYER ventriculogram reveals Not performed The left ventricular end-diastolic pressure Not measured IMPRESSION Coronary disease as described above PLAN 1. I recommend medical management at this time. The reduced ejection fraction is not being caused by the distal right coronary artery lesion. 2. Recommend rate control for what appears to be chronic atrial fibrillation versus possible intermittent atrial flutter 3. Restart anticoagulation 4. Patient may have a tachycardia induced cardiomyopathy or possibly a cardiomyopathy exacerbated by sleep apnea. Recommend sleep study 5. Thyroid panel and workup for nonischemic cardiomyopathy 6. If patient is appropriately rate controlled with atrial fibrillation and heart rate decreases he may be a candidate for FISHER SWORDFISH-D. For the time being he requires maximizing medical management prior to cardiac resynchronization therapy Electronically signed by : Junior Blackmon MD 07/14/2024 15:15:31
[2024-07-14] MEDS: MAGNESIUM SULFATE IN WATER 2 GM/50 ML PIGGYBACK IV (01:30)
[2024-07-14] MEDS: BUMETANIDE 10 MG in 0.9 % SODIUM CHLORIDE 60 ML 5 MG IV (03:31)
--- NOTE | 2024-07-14 04:54 | PC.NURSE ---
Patient remains A/O able to voice needs to staff. Rested throughout shift with no incidents. Continues on Bumex drip no ADR's noted. Reviewed poc and d/c goals, pt v/u and has no new c/o
[2024-07-14 05:55] LABS: POC Glucose,Bedside 133 (70-110)
[2024-07-14] MEDS: ENOXAPARIN 120MG/0.8ML SYRINGE 120 MG SUBCUT ×2 (06:31→21:34)
[2024-07-14 07:07] LABS: Basophils # 0.1 K/mm3 (0-0.2); Basophils % 1.7 % (0.1-2.0); Eosinophils % 0.9 % (0.1-12.0); Hematocrit 51.6 % (42.0-52.0); Hemoglobin 17.4 g/dL (14.1-18.0); Lymphocytes # 2.2 K/mm3 (0.7-4.5); Lymphocytes % 48.3 % (10-50); Mean Corpuscular HGB Conc 33.8 g/dL (31.8-35.4); Mean Corpuscular Hemoglobin 26.5 pg (27.0-31.2); Mean Corpuscular Volume 78.3 fl (80-94); Mean Platelet Volume 9.1 fl (7.4-10.4); Monocytes # 0.4 K/mm3 (0.1-1.0); Monocytes % 8.3 % (1.7-9.3); Neutrophils # 1.9 K/mm3 (1.8-7.8); Neutrophils % 40.9 % (37.0-80.0); Platelet Count 158 K/mm3 (142-424); Red Blood Count 6.58 M/mm3 (4.60-6.20); Red Cell Distribution Width 16.1 % (11.5-17.5); White Blood Count 4.6 K/mm3 (4.8-10.8)
[2024-07-14 07:26] LABS: Alanine Aminotransferase 26 U/L (12-78); Albumin Level 3.3 g/dl (3.5-5.0); Albumin/Globulin Ratio 1.2 (1.1-1.8); Alkaline Phosphatase 102 U/L (38-126); Anion Gap 10.2 mEq/L (5-15); Aspartate Amino Transferase 33 U/L (17-59); Bilirubin,Total 1.8 mg/dl (0.2-1.3); Blood Urea Nitrogen 33 mg/dl (9-20); Calcium 8.3 mg/dl (8.4-10.2); Carbon Dioxide 34 mmol/L (22.0-30.0); Chloride 94 mmol/L (98-107); Creatinine Clearance Estimated 96 mL/min (50-200); Estimated Glomerular Filt Rate 46 ml/min (>60); GFR (African American) 56 ML/MIN (>60); Globulin 2.7 g/dL (1.3-3.2); Glucose 125 mg/dl (74-100); Magnesium 2.5 mg/dl (1.6-2.3); Potassium 3.2 mmoL/L (3.5-5.1); Sodium 135 mmol/L (136-145)
--- NOTE | 2024-07-14 08:04 | P.PN_ITS ---
Subjective *Date: 07/14/24 *Time: 16:25 Interval history: States he is feeling little better this morning. Stable on room air. No nausea or vomiting. No chest pain. Still has significant swelling in legs Medical Exam Vital signs and Labs for Last 24 Hours: Vital Signs Temp Pulse Pulse Pulse Resp BP Pulse Ox 07/14/24 08:00 118 H 20 99/66 L 95 07/14/24 06:49 07/14/24 06:00 110 H 20 132/76 93 L 07/14/24 05:00 98 F 07/14/24 05:00 07/14/24 04:00 120 H 07/14/24 04:00 122 H 20 153/70 H 97 07/14/24 04:00 94 L 07/14/24 03:00 07/14/24 02:00 113 H 20 113/73 95 07/14/24 00:57 07/14/24 00:00 120 H 07/14/24 00:00 97.9 F 07/14/24 00:00 106 H 20 114/69 95 07/14/24 00:00 94 L 07/13/24 23:00 07/13/24 22:00 99 H 20 123/74 97 07/13/24 21:00 07/13/24 20:00 120 H 07/13/24 20:00 98 07/13/24 20:00 97.8 F 117 H 20 114/71 98 07/13/24 18:37 07/13/24 18:00 110 H 18 92/58 L 96 07/13/24 17:00 07/13/24 16:00 110 H 07/13/24 16:00 117 H 18 122/79 95 07/13/24 16:00 98.0 F 07/13/24 16:00 116 H 96 07/13/24 15:00 07/13/24 14:00 112 H 24 153/87 H 96 07/13/24 13:00 07/13/24 12:00 120 H 07/13/24 12:00 110 H 20 105/85 L 07/13/24 11:53 126 H 07/13/24 11:05 98.2 F 124 H 22 110/67 07/13/24 11:04 130 H 07/13/24 11:00 O2 Del Method 07/14/24 08:00 Room Air 07/14/24 06:49 Room Air 07/14/24 06:00 Room Air 07/14/24 05:00 07/14/24 05:00 Room Air 07/14/24 04:00 07/14/24 04:00 Room Air 07/14/24 04:00 Room Air 07/14/24 03:00 Room Air 07/14/24 02:00 Room Air 07/14/24 00:57 Room Air 07/14/24 00:00 07/14/24 00:00 07/14/24 00:00 Room Air 07/14/24 00:00 Room Air 07/13/24 23:00 Room Air 07/13/24 22:00 Room Air 07/13/24 21:00 Room Air 07/13/24 20:00 07/13/24 20:00 Room Air 07/13/24 20:00 Room Air 07/13/24 18:37 Room Air 07/13/24 18:00 Room Air 07/13/24 17:00 Room Air 07/13/24 16:00 07/13/24 16:00 Room Air 07/13/24 16:00 07/13/24 16:00 Room Air 07/13/24 15:00 Room Air 07/13/24 14:00 Room Air 07/13/24 13:00 Room Air 07/13/24 12:00 07/13/24 12:00 Room Air 07/13/24 11:53 Room Air 07/13/24 11:05 Room Air 07/13/24 11:04 07/13/24 11:00 Room Air Intake and Output 07/13/24 07/14/24 07/14/24 23:59 07:59 15:59 Intake Total 1046 / 1881 345.333 / 345.333 Output Total 750 / 1050 1175 / 1175 Balance 296 / 831 -829.667 / -829.667 Intake: Intake, Oral Amount 980 / 1755 240 / 240 Intake, Total IV Amount 66 / 126 105.333 / 105.333 Bumetanide 10 mg In 0.9 % 25 / 25 Sodium Chloride 60 ml @ 5 mls/ hr IV .Q20H [facility] Rx#:[id number] Output: Output, Urine Amount 750 / 1050 1175 / 1175 Other: Number of Voids 1 Number of Unmeasured Voids 1 Weight 122.606 kg Patient Weight 07/14/24 23:59 Weight 122.606 kg Laboratory Results - last 24 hr 07/13/24 11:15: WBC 4.4 L, RBC 7.01 H, Hgb 18.3 H, Hct 54.2 H, MCV 77.3 L, MCH 26.2 L, MCHC 33.9, RDW 16.2, Plt Count 163, MPV 8.0, Neut % (Auto) 45.9, Lymph % (Auto) 44.9, [place] % (Auto) 6.2, Eos % (Auto) 1.3, Baso % (Auto) 1.7, Neut # (Auto) 2.0, Lymph # (Auto) 2.0, [place] # (Auto) 0.3, Eos # (Auto) 0.1, Baso # (Auto) 0.1, PT 16.2 H, INR 1.51 H, Sodium 136, Potassium 3.1 L, Chloride 95 L, Carbon Dioxide 31 H, Anion Gap 13.1, BUN 31 H, Creatinine 1.70 H, Estimated Creat Clear 90, Estimated GFR 43 L, Est GFR ( Amer) 52 L, Glucose 154 H D , Hemoglobin A1c 8.0 H, Calcium 8.7, Magnesium 1.2 L, Total Bilirubin 1.9 H, AST 39, ALT 35, Alkaline Phosphatase 121, Troponin I 0.09 H, Total Protein 6.8, Albumin 3.9, Globulin 2.9, Albumin/Globulin Ratio 1.3 07/13/24 14:12: Troponin I 0.08 H 07/13/24 17:00: Troponin I 0.08 H 07/14/24 05:48: POC Glucose 133 H 07/14/24 06:01: WBC 4.6 L, RBC 6.58 H, Hgb 17.4, Hct 51.6, MCV 78.3 L, MCH 26.5 L, MCHC 33.8, RDW 16.1, Plt Count 158, MPV 9.1, Neut % (Auto) 40.9, Lymph % (Auto) 48.3, [place] % (Auto) 8.3, Eos % (Auto) 0.9, Baso % (Auto) 1.7, Neut # (Auto) 1.9, Lymph # (Auto) 2.2, [place] # (Auto) 0.4, Eos # (Auto) 0.0, Baso # (Auto) 0.1, Sodium 135 L, Potassium 3.2 L, Chloride 94 L, Carbon Dioxide 34 H, Anion Gap 10.2, BUN 33 H, Creatinine 1.60 H, Estimated Creat Clear 96, Estimated GFR 46 L, Est GFR ( Amer) 56 L, Glucose 125 H, Calcium 8.3 L, Magnesium 2.5 H D, Total Bilirubin 1.8 H, AST 33, ALT 26 D, Alkaline Phosphatase 102, Total Protein 6.0 L, Albumin 3.3 L D, Globulin 2.7, Albumin/Globulin Ratio 1.2 I & O for Labs for Last 24 Hours: Intake & Output 07/11/24 07/12/24 07/13/24 07/14/24 22:59 23:59 23:59 23:59 Intake Total 1631 / 1881 345.333 / 345.333 Output Total 1050 / 1050 1175 / 1175 Balance 581 / 831 -829.667 / -829.667 Weight 122.186 kg 122.606 kg Constitutional: Present no acute distress, obese, chronically ill appearing and cooperative Respiratory: Present normal respiratory effort; Absent rhonchi, wheezes or crackles Cardiac: Present Irregularly Regular and Tachycardia GI: Present soft and normal bowel sounds; Absent distention or tenderness Extremities: Present normal inspection, full ROM and edema (3+ to knees) Skin: Present intact; Absent erythema Neuro: Present Grossly Intact, alert, awake, oriented x 3 and moves all extremities Assessment and Plan *Assessment and plan (1) Acute on chronic HFrEF (heart failure with reduced ejection fraction): Status: Acute Category: Medical Code(s): I50.23 - Acute on chronic systolic (congestive) heart failure (2) Atrial fibrillation with RVR: Status: Acute Category: Medical Code(s): I48.91 - Unspecified atrial fibrillation (3) PND (paroxysmal nocturnal dyspnea): Status: Acute Category: Medical Code(s): R06.00 - Dyspnea, unspecified (4) Automatic implantable cardioverter-defibrillator in situ: Status: Chronic Category: Medical Code(s): Z95.810 - Presence of automatic (implantable) cardiac defibrillator (5) Bilateral lower extremity edema: Status: Acute Category: Medical Code(s): R60.0 - Localized edema (6) HLD (hyperlipidemia): Status: Chronic Qualifiers: Hyperlipidemia type: mixed hyperlipidemia Qualified Code(s): E78.2 - Mixed hyperlipidemia Category: Medical Code(s): E78.5 - Hyperlipidemia, unspecified (7) Obstructive sleep apnea: Status: Chronic Category: Medical Code(s): G47.33 - Obstructive sleep apnea (adult) (pediatric) (8) Type 2 diabetes mellitus: Status: Chronic Qualifiers: Diabetes mellitus complication status: without complication Diabetes mellitus intermodal owner operator truck driver insulin use: without intermodal owner operator truck driver use Qualified Code(s): E11.9 - Type 2 diabetes mellitus without complications Category: Medical Code(s): E11.9 - Type 2 diabetes mellitus without complications (9) Obesity: Status: Chronic Qualifiers: Body mass index: BMI 40.0-44.9 Obesity classification: adult class 3 (BMI >= 40) Obesity type: due to excess calories Serious obesity comorbidity presence: without serious comorbidity Qualified Code(s): E66.01 - Morbid (severe) obesity due to excess calories; Z68.41 - Body mass index (BMI) 40.0- 44.9, adult Category: Medical Code(s): E66.9 - Obesity, unspecified (10) Dilated cardiomyopathy: Status: Chronic Category: Medical Code(s): I42.0 - Dilated cardiomyopathy Plan 49-year-old male with known history of heart failure with reduced ejection fraction. Has had progressive swelling and edema with orthopnea. Seen in cardiology clinic today, appears to have worsening cardiac function and volume overload. Discussed case with cardiology PA, request admission for diuresis and further inpatient management. I agreed to admit for further treatment. Initiated on Bumex drip. Necessitating ICU level care due to likelihood of needing milrinone or dobutamine drip along with close monitoring on telemetry and high risk of decompensation. Preliminary echo shows EF 10 to 15%. Going for left heart cath today. Cardiology assisting with care. Problems addressed as follows: Acute on chronic HFrEF -Worsening EF with repeat echo from today showing EF 10 to 15% -Discussed case with cardiology, continue Bumex drip. Increase to 1 mg/h. -1 L since admission. Plan for left heart cath today. - cont. goal-directed therapy with spironolactone 25 mg daily, Entresto 24/26 mg 1 tablet twice daily, potassium replacement with 20 mEq orally 4 times a day. Mood disorder: Continue nortriptyline 25 mg nightly Sleep disorder: Continue melatonin 2.5 mg nightly Hyperlipidemia: Continue Lipitor 80 mg nightly GERD: Continue pantoprazole 40 mg nightly A. fib with RVR -Resume Eliquis after left heart cath if no plan for converting device. -Holding on rate controlling medication at this time unless patient becomes frankly hypotensive or unstable History of CVA, 09/2023 -careful use of rate control meds due to resurgence of CVA symptoms with low BP Type 2 diabetes -A1c obtained, 8.0. Continue sliding scale insulin with fingersticks ACHS -Initiated Jardiance 10 mg daily CKD, stage 3b: At baseline with creatinine 1.6, BUN 35. Close monitoring of electrolytes with diuresis. Potassium 3.2, magnesium 2.5. Repeat BMP and magnesium ordered for this evening, repeat CBC, CMP, magnesium ordered for the morning Dyslipidemia LDL 79, on statin and zetia, hold for now Full code Resume Eliquis Cardiac diet
[2024-07-14] MEDS: SACUBITRIL/VALSARTAN 24-26MG TABLET 1 EACH PO ×2 (08:19→21:36)
[2024-07-14] MEDS: SPIRONOLACTONE 25MG TABLET 25 MG PO (08:19)
[2024-07-14] MEDS: EMPAGLIFLOZIN 10MG TABLET 10 MG PO (08:19)
[2024-07-14] MEDS: POTASSIUM CHLORIDE 20MEQ TAB 20 MEQ PO (08:19)
[2024-07-14] MEDS: POTASSIUM CHLORIDE 20MEQ TAB 40 MEQ PO (08:24)
[2024-07-14 10:20] LABS: POC Glucose,Bedside 188 (70-110)
--- NOTE | 2024-07-14 11:32 | P.PN_ITS ---
Subjective Subjective Date: 07/14/24 Time: 11:32 Principal diagnosis: HFrEF Interval history: 49-year-old black male in bed in no acute distress. Net -600 mL balance and fluid intake overnight. Bumex increased today. Echocardiogram shows severe LV dysfunction (ejection fraction around 10%) with recommendation for proceeding with left heart catheterization today. Risk, benefits and procedure explained to the patient he agrees to proceed. Exam Data for Last 24 hours Vital signs and Labs for Last 24 Hours: Temp Pulse Resp BP Pulse Ox O2 Del Method 98 F 117 H 21 95/71 L 90 L Room Air 07/14/24 05:00 07/14/24 10:58 07/14/24 10:58 07/14/24 10:58 07/14/24 10:58 07/14/24 10:00 Laboratory Results - last 24 hr 07/13/24 11:15: WBC 4.4 L, RBC 7.01 H, Hgb 18.3 H, Hct 54.2 H, MCV 77.3 L, MCH 26.2 L, MCHC 33.9, RDW 16.2, Plt Count 163, MPV 8.0, Neut % (Auto) 45.9, Lymph % (Auto) 44.9, [place] % (Auto) 6.2, Eos % (Auto) 1.3, Baso % (Auto) 1.7, Neut # (Auto) 2.0, Lymph # (Auto) 2.0, [place] # (Auto) 0.3, Eos # (Auto) 0.1, Baso # (Auto) 0.1, PT 16.2 H, INR 1.51 H, Sodium 136, Potassium 3.1 L, Chloride 95 L, Carbon Dioxide 31 H, Anion Gap 13.1, BUN 31 H, Creatinine 1.70 H, Estimated Creat Clear 90, Estimated GFR 43 L, Est GFR ( Amer) 52 L, Glucose 154 H D , Hemoglobin A1c 8.0 H, Calcium 8.7, Magnesium 1.2 L, Total Bilirubin 1.9 H, AST 39, ALT 35, Alkaline Phosphatase 121, Troponin I 0.09 H, Total Protein 6.8, Albumin 3.9, Globulin 2.9, Albumin/Globulin Ratio 1.3 07/13/24 14:12: Troponin I 0.08 H 07/13/24 17:00: Troponin I 0.08 H 07/13/24 20:04: POC Glucose 188 H 07/14/24 05:48: POC Glucose 133 H 07/14/24 06:01: WBC 4.6 L, RBC 6.58 H, Hgb 17.4, Hct 51.6, MCV 78.3 L, MCH 26.5 L, MCHC 33.8, RDW 16.1, Plt Count 158, MPV 9.1, Neut % (Auto) 40.9, Lymph % (Auto) 48.3, [place] % (Auto) 8.3, Eos % (Auto) 0.9, Baso % (Auto) 1.7, Neut # (Auto) 1.9, Lymph # (Auto) 2.2, [place] # (Auto) 0.4, Eos # (Auto) 0.0, Baso # (Auto) 0.1, Sodium 135 L, Potassium 3.2 L, Chloride 94 L, Carbon Dioxide 34 H, Anion Gap 10.2, BUN 33 H, Creatinine 1.60 H, Estimated Creat Clear 96, Estimated GFR 46 L, Est GFR ( Amer) 56 L, Glucose 125 H, Calcium 8.3 L, Magnesium 2.5 H D, Total Bilirubin 1.8 H, AST 33, ALT 26 D, Alkaline Phosphatase 102, Total Protein 6.0 L, Albumin 3.3 L D, Globulin 2.7, Albumin/Globulin Ratio 1.2 I & O for Last 24 hours: Intake & Output 07/11/24 07/12/24 07/13/24 07/14/24 10:59 11:59 11:59 11:59 Intake Total 1975.333 / 1975.333 Output Total 0 / 0 2575 / 2575 Balance 0 / 0 -598.667 / -598.667 Weight 269 lb 6 oz 270 lb 4.8 oz Constitutional Constitutional: no acute distress *Routine Respiratory Exam Respiratory: Present crackles; Absent rhonchi or wheezes *Routine Cardiovascular Exam Cardiovascular: Present irregularly irregular *Routine Extremities Exam Extremities: Present edema *Routine Neurological Exam Neurological: Present alert, oriented X3 and CN II-XII intact Progress Note: A&P Assessment and plan (1) Acute on chronic HFrEF (heart failure with reduced ejection fraction): Status: Acute (2) Atrial fibrillation with RVR: Status: Acute (3) PND (paroxysmal nocturnal dyspnea): Status: Acute (4) Automatic implantable cardioverter-defibrillator in situ: Status: Chronic (5) Bilateral lower extremity edema: Status: Acute (6) HLD (hyperlipidemia): Status: Chronic (7) Obstructive sleep apnea: Status: Chronic (8) Type 2 diabetes mellitus: Status: Chronic (9) Obesity: Status: Chronic (10) Dilated cardiomyopathy: Status: Chronic Assessment and Plan Assessment and Plan for All Diagnoses:: 1. HFrEF, acute on chronic exacerbation with worsening LVEF by echo today (prelim report showing EF about 10%) -admitted for IV bumex drip -monitor I/O and electrolytes -BNP 7920 2. A. fib with RVR -hold eliquis for possible upgrade to INFORMATION RESOURCE CONSULTANT-D (QRS 124 ms) -Lovenox for now 3. CVA, 09/2023 -careful use of rate control meds due to resurgence of CVA symptoms with low BP 4. Elevated troponins likely due to strain from HFrEF -history of normal coronaries in 2017 5. DM, type 2 -defer to Dr. Arnold -add jardiance if possible 6. NOEMI -currently not using CPAP due to intolerance after wt loss associated with decreased food intake related to CVA 7. CKD, stage 3b -Cr 1.6 with GFR 46, stable 8. Hypokalemia -K 3.2 -on replacement 9. Dyslipidemia -LDL 79 -on statin and zetia, hold for now 10. elevated troponins -T max 0.09 -history of normal coronaries in 2017 -now with worsening cardiomyopathy, will check [facility] today shows mod to severe RCA disease without need for intervention at this time. Not a candidate for upgrade to INFORMATION RESOURCE CONSULTANT-D at this time. Hold on dobutamine Start low dose metoprolol tartrate 6.25 mg BID for rate control but observing for signs of cardiogenic shock. Continue diuresis
[2024-07-14 12:02] LABS: POC Glucose,Bedside 138 (70-110)
[2024-07-14] MEDS: KCl 20mEq/100ml 100 ML 50 MEQ IV (12:04)
[2024-07-14] MEDS: diphenhydrAMINE 50MG/ML VIAL 50 MG IV (15:01)
[2024-07-14] MEDS: LIDOCAINE 1% 10ML MDV 20 ML IJ (15:01)
[2024-07-14] MEDS: VERAPAMIL 2.5MG/ML 2ML VIAL 2.5 MG IV (15:01)
[2024-07-14] MEDS: HEPARIN 1,000 UNITS/ML 10ML VIAL (CATH LAB) 10000 UNIT IV (15:01)
[2024-07-14] MEDS: HEPARIN 1,000 UNITS/500ML NS (CATH LAB) 3000 UNIT IV (15:02)
[2024-07-14] MEDS: 0.9 % SODIUM CHLORIDE 500 ML 25 ML IV (15:02)
[2024-07-14] MEDS: FENTANYL 100MCG/2ML VIAL 50 MCG IV (15:02)
[2024-07-14] MEDS: MIDAZOLAM HCL 1MG/ML 5ML VIAL 1 MG IV (15:02)
--- NOTE | 2024-07-14 15:22 | SUR.PHASEII ---
PATIENT TAKEN FROM [facility] TO [address]ND FLOOR, REPORT CALLED TO SOLE BHAKTA.
[2024-07-14] MEDS: IOPAMIDOL-370 (76%);100ML BOTTLE 70 ML IV (15:32)
[2024-07-14] MEDS: POTASSIUM CHLORIDE 20 MEQ, LIDOCAINE HCL/PF 3 ML in 0.9 % SODIUM CHLORIDE 100 ML 56.5 MEQ IV ×2 (15:51→18:37)
[2024-07-14] MEDS: METOPROLOL TARTRATE 25MG TABLET 6.25 MG PO ×2 (16:04→21:35)
[2024-07-14] MEDS: BUMETANIDE 10 MG in 0.9 % SODIUM CHLORIDE 60 ML 20 MG IV ×2 (16:05→21:38)
[2024-07-14 17:09] LABS: POC Glucose,Bedside 128 (70-110)
[2024-07-14] MEDS: humaLOG 100 UNITS/ML 10ML VIAL (SSI) SUBCUT (20:58)
[2024-07-14] MEDS: ATORVASTATIN 40MG TABLET 80 MG PO (21:33)
[2024-07-14] MEDS: MELATONIN 5MG TABLET 2.5 MG PO (21:34)
[2024-07-14] MEDS: PANTOPRAZOLE 40MG TABLET 40 MG PO (21:35)
[2024-07-14 21:43] LABS: POC Glucose,Bedside 160 (70-110)
[2024-07-15] VITALS (11 sets, daily range): BP systolic 95–166; BP diastolic 63–76; PULSE 100–140; RESP 18–22; TEMP 36.2–36.6; O2SAT 93–99; BMI 36.6
[2024-07-15] MEDS: BUMETANIDE 10 MG in 0.9 % SODIUM CHLORIDE 60 ML 20 MG IV ×5 (02:32→22:51)
--- NOTE | 2024-07-15 04:13 | PC.NURSE ---
End of shift summary: Patient has rested well through the night, sleeping in intervals. He remains on the Bumex gtt per NOV with adequate urinary output. His pitting edema is improving to BLE. Lung richard are diminished with faint crackles in bilateral bases. Patient denies chest pain, shortness of air, fever, or chills. He is tolerating PO fluids well. Patient remains in Afib with RVR, sustaining rates of >120; however, according to MD notes this is okay as long as patient is stable without decompensation. At the point patient becomes unstable, then there will be a rate control medication added. Patient's VSS otherwise. NAD. Stepdown care continued.
[2024-07-15 07:05] LABS: Basophils # 0.1 K/mm3 (0-0.2); Basophils % 1.8 % (0.1-2.0); Eosinophils % 0.6 % (0.1-12.0); Hematocrit 53.4 % (42.0-52.0); Hemoglobin 17.9 g/dL (14.1-18.0); Lymphocytes # 1.8 K/mm3 (0.7-4.5); Lymphocytes % 46.2 % (10-50); Mean Corpuscular HGB Conc 33.5 g/dL (31.8-35.4); Mean Corpuscular Hemoglobin 25.9 pg (27.0-31.2); Mean Corpuscular Volume 77.4 fl (80-94); Monocytes # 0.3 K/mm3 (0.1-1.0); Monocytes % 8.6 % (1.7-9.3); Neutrophils # 1.7 K/mm3 (1.8-7.8); Neutrophils % 42.8 % (37.0-80.0); Platelet Count 150 K/mm3 (142-424); Red Cell Distribution Width 16.2 % (11.5-17.5); White Blood Count 3.9 K/mm3 (4.8-10.8)
[2024-07-15 07:10] LABS: Blood Urea Nitrogen 30 mg/dl (9-20); Calcium 8.5 mg/dl (8.4-10.2); Carbon Dioxide 28 mmol/L (22.0-30.0); Chloride 96 mmol/L (98-107); Creatinine Clearance Estimated 102 mL/min (50-200); Estimated Glomerular Filt Rate 50 ml/min (>60); GFR (African American) 60 ML/MIN (>60); Glucose 105 mg/dl (74-100); Sodium 134 mmol/L (136-145)
[2024-07-15 07:35] LABS: Magnesium 1.7 mg/dl (1.6-2.3)
--- NOTE | 2024-07-15 09:35 | P.PN_ITS ---
Subjective Subjective Date: 07/15/24 Time: 09:36 Principal diagnosis: HFrEF, A. fib with RVR Interval history: 49-year-old black male in bed in no acute distress. Heart rate continues to be in the 110 to 120 bpm range. Patient did tolerate low-dose metoprolol last evening so we will increase today. Exam Data for Last 24 hours Vital signs and Labs for Last 24 Hours: Temp Pulse Resp BP Pulse Ox O2 Del Method O2 Flow Rate 97.5 F L 118 H 20 117/66 99 Room Air 3 07/15/24 08:00 07/15/24 06:00 07/15/24 06:00 07/15/24 06:00 07/15/24 06:00 07/15/24 09:00 07/15/24 06:00 Laboratory Results - last 24 hr 07/13/24 20:04: POC Glucose 188 H 07/14/24 11:42: POC Glucose 138 H 07/14/24 17:00: POC Glucose 128 H 07/14/24 20:58: POC Glucose 160 H 07/15/24 05:48: WBC 3.9 L, RBC 6.90 H, Hgb 17.9, Hct 53.4 H, MCV 77.4 L, MCH 25.9 L, MCHC 33.5, RDW 16.2, Plt Count 150, MPV 9.0, Neut % (Auto) 42.8, Lymph % (Auto) 46.2, [place] % (Auto) 8.6, Eos % (Auto) 0.6, Baso % (Auto) 1.8, Neut # (Auto) 1.7 L, Lymph # (Auto) 1.8, [place] # (Auto) 0.3, Eos # (Auto) 0.0, Baso # (Auto) 0.1, Sodium 134 L, Potassium 4.0 D, Chloride 96 L, Carbon Dioxide 28, Anion Gap 14.0, BUN 30 H, Creatinine 1.50 H, Estimated Creat Clear 102, Estimated GFR 50 L, Est GFR ( Amer) 60, Glucose 105 H, Calcium 8.5, Magnesium 1.7 D I & O for Last 24 hours: Intake & Output 07/12/24 07/13/24 07/14/24 07/15/24 11:59 11:59 11:59 11:59 Intake Total 1975.333 / 1975.333 938 / 938 Output Total 0 / 0 3075 / 3075 3025 / 3025 Balance 0 / 0 -1098.667 / -1098.667 -7 / -2086 Weight 269 lb 6 oz 270 lb 4.8 oz 270 lb 4.799 oz Constitutional Constitutional: no acute distress *Routine Respiratory Exam Respiratory: Present CTA bilaterally *Routine Cardiovascular Exam Cardiovascular: Present tachycardia and irregularly irregular Progress Note: A&P Assessment and plan (1) Acute on chronic HFrEF (heart failure with reduced ejection fraction): Status: Acute (2) Atrial fibrillation with RVR: Status: Acute (3) PND (paroxysmal nocturnal dyspnea): Status: Acute (4) Automatic implantable cardioverter-defibrillator in situ: Status: Chronic (5) Bilateral lower extremity edema: Status: Acute (6) HLD (hyperlipidemia): Status: Chronic (7) Obstructive sleep apnea: Status: Chronic (8) Type 2 diabetes mellitus: Status: Chronic (9) Obesity: Status: Chronic (10) Dilated cardiomyopathy: Status: Chronic Assessment and Plan Assessment and Plan for All Diagnoses:: 1. HFrEF, acute on chronic exacerbation with worsening LVEF by echo today (prelim report showing EF about 10%) -admitted for IV bumex drip -monitor I/O and electrolytes -BNP 7920 -Not a candidate for upgrade to MEDICAL PRACTICE MANAGER-D at this time. 2. A. fib with RVR -eliquis 3. CVA, 09/2023 -careful use of rate control meds due to resurgence of CVA symptoms with low BP 4. Elevated troponins likely due to strain from HFrEF -history of normal coronaries in 2017 [facility] this admission shows mod to severe RCA disease, medical therapy 5. DM, type 2 -defer to Dr. Arnold -add jardiance if possible 6. NOEMI -currently not using CPAP due to intolerance after wt loss associated with decreased food intake related to CVA 7. CKD, stage 3b -Cr 1.5 with GFR 50, stable 8. Hypokalemia -resolved -on replacement 9. Dyslipidemia -LDL 79 -on statin and zetia, hold for now 10. elevated troponins -T max 0.09 -history of normal coronaries in 2017 [facility] this admission shows mod to severe RCA disease without need for intervention at this time. Hold on dobutamine Increase metoprolol tartrate to 12.5 mg BID for rate control but observing for signs of cardiogenic shock. Continue diuresis
[2024-07-15] MEDS: SPIRONOLACTONE 25MG TABLET 25 MG PO (09:37)
[2024-07-15] MEDS: ENOXAPARIN 120MG/0.8ML SYRINGE 120 MG SUBCUT (09:37)
[2024-07-15] MEDS: SACUBITRIL/VALSARTAN 24-26MG TABLET 1 EACH PO ×2 (09:37→21:07)
[2024-07-15] MEDS: POTASSIUM CHLORIDE 20MEQ TAB 20 MEQ PO ×4 (09:37→21:08)
[2024-07-15] MEDS: EMPAGLIFLOZIN 10MG TABLET 10 MG PO (09:37)
[2024-07-15] MEDS: METOPROLOL TARTRATE 25MG TABLET 12.5 MG PO ×3 (09:40→21:08)
--- NOTE | 2024-07-15 11:42 | P.PN_ITS ---
Subjective *Date: 07/15/24 *Time: 15:34 Interval history: Patient wore oxygen overnight, on room air by morning. Feeling somewhat better today. Having significant response to increased dose of Bumex. -2 L out yesterday, -1 L so far today. Making good urine. Improvement in swelling. No nausea or vomiting. Medical Exam Vital signs and Labs for Last 24 Hours: Vital Signs Temp Pulse Pulse Resp BP Pulse Ox O2 Del Method 07/15/24 10:00 126 H 18 127/69 98 Room Air 07/15/24 09:00 Room Air 07/15/24 08:05 Room Air 07/15/24 08:00 97.5 F L 07/15/24 06:00 97.7 F 118 H 20 117/66 99 Nasal Cannula 07/15/24 04:00 97.9 F 07/15/24 04:00 110 H 07/15/24 04:00 97.6 F 115 H 20 111/76 98 Nasal Cannula 07/15/24 00:00 120 H 07/15/24 00:00 97.6 F 125 H 22 103/63 L 99 Nasal Cannula 07/14/24 22:00 129 H 21 110/63 99 Nasal Cannula 07/14/24 20:00 130 H 07/14/24 20:00 98 Nasal Cannula 07/14/24 20:00 98.5 F 07/14/24 20:00 98 F 115 H 24 113/85 99 Nasal Cannula 07/14/24 18:29 Room Air 07/14/24 18:15 131 H 16 118/52 L 95 Nasal Cannula 07/14/24 17:45 137 H 16 102/74 L 94 L Nasal Cannula 07/14/24 17:15 127 H 16 123/51 L 92 L Nasal Cannula 07/14/24 17:00 Nasal Cannula 07/14/24 16:45 105 H 18 108/72 L 95 Nasal Cannula 07/14/24 16:15 105 H 18 118/63 91 L Nasal Cannula 07/14/24 16:00 108 H 16 85/55 L 93 L Nasal Cannula 07/14/24 16:00 140 H 07/14/24 16:00 Nasal Cannula 07/14/24 15:45 109 H 16 89/54 L 92 L Nasal Cannula 07/14/24 15:30 133 H 16 111/76 90 L Nasal Cannula 07/14/24 13:05 Room Air 07/14/24 12:00 110 H 07/14/24 12:00 Room Air 07/14/24 12:00 116 H 21 120/80 97 Room Air O2 Flow Rate 07/15/24 10:00 07/15/24 09:00 07/15/24 08:05 07/15/24 08:00 07/15/24 06:00 3 07/15/24 04:00 07/15/24 04:00 07/15/24 04:00 3 07/15/24 00:00 07/15/24 00:00 3 07/14/24 22:00 3 07/14/24 20:00 07/14/24 20:00 3 07/14/24 20:00 07/14/24 20:00 2 07/14/24 18:29 07/14/24 18:15 2 07/14/24 17:45 2 07/14/24 17:15 2 07/14/24 17:00 2 07/14/24 16:45 2 07/14/24 16:15 2 07/14/24 16:00 2 07/14/24 16:00 07/14/24 16:00 3 07/14/24 15:45 2 07/14/24 15:30 2 07/14/24 13:05 07/14/24 12:00 07/14/24 12:00 07/14/24 12:00 Intake and Output 07/14/24 07/15/24 07/15/24 23:59 07:59 15:59 Intake Total 460 / 825.333 478 / 478 Output Total 850 / 2875 1675 / 2175 500 / 2175 Balance -390 / -2049.667 -1197 / -1697 -500 / -1697 Intake: Intake, Oral Amount 340 / 580 200 / 200 Intake, Total IV Amount 100 / 205.333 198 / 198 Infusion Intake 20 / 40 80 / 80 Bumetanide 10 mg In 0.9 % 20 / 40 80 / 80 Sodium Chloride 60 ml @ 2 MG/HR 20 mls/hr IV .Q5H [facility] Rx#: [id number] Output: Output, Urine Amount 850 / 2875 1675 / 2175 500 / 2175 Other: Number of Voids 1 Number of Unmeasured Voids 1 0 0 Weight 122.606 kg Patient Weight 07/15/24 23:59 Weight 122.606 kg Laboratory Results - last 24 hr 07/14/24 11:42: POC Glucose 138 H 07/14/24 17:00: POC Glucose 128 H 07/14/24 20:58: POC Glucose 160 H 07/15/24 05:48: WBC 3.9 L, RBC 6.90 H, Hgb 17.9, Hct 53.4 H, MCV 77.4 L, MCH 25.9 L, MCHC 33.5, RDW 16.2, Plt Count 150, MPV 9.0, Neut % (Auto) 42.8, Lymph % (Auto) 46.2, [place] % (Auto) 8.6, Eos % (Auto) 0.6, Baso % (Auto) 1.8, Neut # (Auto) 1.7 L, Lymph # (Auto) 1.8, [place] # (Auto) 0.3, Eos # (Auto) 0.0, Baso # (Auto) 0.1, Sodium 134 L, Potassium 4.0 D, Chloride 96 L, Carbon Dioxide 28, Anion Gap 14.0, BUN 30 H, Creatinine 1.50 H, Estimated Creat Clear 102, Estimated GFR 50 L, Est GFR ( Amer) 60, Glucose 105 H, Calcium 8.5, Magnesium 1.7 D I & O for Labs for Last 24 Hours: Intake & Output 07/12/24 07/13/24 07/14/24 07/15/24 23:59 23:59 23:59 23:59 Intake Total 1631 / 1881 805.333 / 825.333 478 / 478 Output Total 1050 / 1050 2875 / 2875 2175 / 2175 Balance 581 / 831 -2069.667 / -2049.667 -1697 / -1697 Weight 122.186 kg 122.606 kg 122.606 kg Constitutional: Present no acute distress, obese, chronically ill appearing and cooperative Respiratory: Present normal respiratory effort; Absent rhonchi, wheezes or crackles Cardiac: Present Irregularly Regular and Tachycardia GI: Present soft and normal bowel sounds; Absent distention or tenderness Extremities: Present normal inspection, full ROM and edema (1+ right leg to knee, 2+ left leg the knee; interval improved ) Skin: Present intact; Absent erythema Neuro: Present Grossly Intact, alert, awake, oriented x 3 and moves all extremi ties Assessment and Plan *Assessment and plan (1) Acute on chronic HFrEF (heart failure with reduced ejection fraction): Status: Acute Category: Medical Code(s): I50.23 - Acute on chronic systolic (congestive) heart failure (2) Atrial fibrillation with RVR: Status: Acute Category: Medical Code(s): I48.91 - Unspecified atrial fibrillation (3) PND (paroxysmal nocturnal dyspnea): Status: Acute Category: Medical Code(s): R06.00 - Dyspnea, unspecified (4) Automatic implantable cardioverter-defibrillator in situ: Status: Chronic Category: Medical Code(s): Z95.810 - Presence of automatic (implantable) cardiac defibrillator (5) Bilateral lower extremity edema: Status: Acute Category: Medical Code(s): R60.0 - Localized edema (6) HLD (hyperlipidemia): Status: Chronic Qualifiers: Hyperlipidemia type: mixed hyperlipidemia Qualified Code(s): E78.2 - Mixed hyperlipidemia Category: Medical Code(s): E78.5 - Hyperlipidemia, unspecified (7) Obstructive sleep apnea: Status: Chronic Category: Medical Code(s): G47.33 - Obstructive sleep apnea (adult) (pediatric) (8) Type 2 diabetes mellitus: Status: Chronic Qualifiers: Diabetes mellitus complication status: without complication Diabetes mellitus long chain quiller tender insulin use: without long chain quiller tender use Qualified Code(s): E11.9 - Type 2 diabetes mellitus without complications Category: Medical Code(s): E11.9 - Type 2 diabetes mellitus without complications (9) Obesity: Status: Chronic Qualifiers: Obesity type: due to excess calories Serious obesity comorbidity presence: without serious comorbidity Body mass index: BMI 40.0-44.9 Obesity classification: adult class 3 (BMI >= 40) Qualified Code(s): E66.01 - Morbid (severe) obesity due to excess calories; Z68.41 - Body mass index (BMI) 40.0- 44.9, adult Category: Medical Code(s): E66.9 - Obesity, unspecified (10) Dilated cardiomyopathy: Status: Chronic Category: Medical Code(s): I42.0 - Dilated cardiomyopathy Plan 49-year-old male with known history of heart failure with reduced ejection fraction. Has had progressive swelling and edema with orthopnea. Seen in cardiology clinic today, appears to have worsening cardiac function and volume overload. Discussed case with cardiology PA, request admission for diuresis and further inpatient management. I agreed to admit for further treatment. Initiated on Bumex drip. Necessitating ICU level care due to likelihood of needing milrinone or dobutamine drip along with close monitoring on telemetry and high risk of decompensation. Preliminary echo shows EF 10 to 15%. Taken for heart cath. No stents placed. Continue aggressive diuresis and medical management. Cardiology assisting with care. Problems addressed as follows: Acute on chronic HFrEF -Worsening EF with repeat echo from today showing EF 10 to 15% -Discussed case with cardiology, continue Bumex drip. Increased to 2 mg/h. -3 L since admission. - left heart cath performed yesterday, Stable 80% stenosis of nondominant right coronary artery. Recommend continued aggressive medical management. Does not meet criteria for transitioning to TYING MACHINE OPERATOR LUMBER-D at this time. - cont. goal-directed therapy with spironolactone 25 mg daily, Entresto 24/26 mg 1 tablet twice daily, potassium replacement with 20 mEq orally 4 times a day. Mood disorder: Continue nortriptyline 25 mg nightly Sleep disorder: Continue melatonin 2.5 mg nightly Hyperlipidemia: Continue Lipitor 80 mg nightly GERD: Continue pantoprazole 40 mg nightly A. fib with RVR -Resume Eliquis, no plan for TYING MACHINE OPERATOR LUMBER-D -Initiate metoprolol at low-dose, slowly titrate pending patient response. Continue metoprolol tartrate 12.5 mg 3 times a day History of CVA, 09/2023: careful use of rate control meds due to resurgence of CVA symptoms with low BP Type 2 diabetes -A1c obtained, 8.0. Continue sliding scale insulin with fingersticks ACHS -Initiated Jardiance 10 mg daily CKD, stage 3b: At baseline with creatinine 1.5, BUN 30. Close monitoring of electrolytes with diuresis. Potassium 4.0, magnesium 1.7. Repeat CBC, CMP, magnesium ordered for the morning Dyslipidemia LDL 79, on statin and zetia, hold for now Full code Resume Eliquis Cardiac diet
--- NOTE | 2024-07-15 13:32 | PC.NURSE ---
1324 9 beat run of [facility] [place], cardiology notified, patient non symptomatic, no new orders
[2024-07-15] MEDS: humaLOG 100 UNITS/ML 10ML VIAL (SSI) SUBCUT ×2 (16:04→21:25)
[2024-07-15 16:17] LABS: POC Glucose,Bedside 161 (70-110)
--- NOTE | 2024-07-15 16:23 | PC.NURSE ---
VS stable, patient able to tolerate metoprolol medication. Lung sounds clear. Output 900 during shift. Bumex drip 20 mls/hr. Patient alert and oriented times 4. Swelling in both feet and ankles pitting plus 3 edema.
[2024-07-15] MEDS: ATORVASTATIN 40MG TABLET 80 MG PO (21:06)
[2024-07-15] MEDS: APIXABAN 5MG TABLET 5 MG PO (21:07)
[2024-07-15] MEDS: PANTOPRAZOLE 40MG TABLET 40 MG PO (21:07)
[2024-07-15] MEDS: MELATONIN 5MG TABLET 2.5 MG PO (21:09)
[2024-07-16] VITALS (8 sets, daily range): BP systolic 94–107; BP diastolic 63–81; PULSE 56–140; RESP 16–20; TEMP 35.7–36.5; O2SAT 96–100; BMI 36.6
[2024-07-16] MEDS: BUMETANIDE 10 MG in 0.9 % SODIUM CHLORIDE 60 ML 20 MG IV (03:26)
--- NOTE | 2024-07-16 03:45 | PC.NURSE ---
Addendum entered by Daniela Morris RN 07/16/24 03:53: Pt BP reading on monitor jumping, manually BP was 78/58, called VALERY Elizalde, stated to stop Bumex drip, BP now at 110/75. Urine output noted 700mL at this time. Original Note: Took over patient care from Toña BHAKTA @ 0130, no 0000 vitals charted, Tech unaware of patient status change to medr, no vitals noted since 0. Vital signs checked at this time since reviewing chart and realizing no vitals are charted.
--- NOTE | 2024-07-16 04:46 | EXP.EVENT.NO ---
problem. Patient has been on Bumex drip, with very good output. Nursing called to notify me that the blood pressure was low. exam. Came to the room and examined the patient is alert and oriented he was able to move, had good color appeared to be in no distress., Is still on oxygen and is denying any chest pain. Blood pressure retaken patient stated he was nervous having everybody come in the room to check on him.. Blood pressures MAP was greater than 65.. plan. Will hold Bumex drip at this time the patient's oxygen saturations are adequate his blood pressure, is adequate not too low. We will let his body adjust without the Bumex since he is had such a good output and then to evaluate in the morning as to what with we should continue. .
[2024-07-16 07:17] LABS: Alanine Aminotransferase 28 U/L (12-78); Albumin Level 3.7 g/dl (3.5-5.0); Albumin/Globulin Ratio 1.3 (1.1-1.8); Alkaline Phosphatase 96 U/L (38-126); Anion Gap 14.2 mEq/L (5-15); Aspartate Amino Transferase 34 U/L (17-59); Bilirubin,Total 1.6 mg/dl (0.2-1.3); Blood Urea Nitrogen 32 mg/dl (9-20); Calcium 8.8 mg/dl (8.4-10.2); Carbon Dioxide 31 mmol/L (22.0-30.0); Chloride 96 mmol/L (98-107); Creatinine Clearance Estimated 96 mL/min (50-200); Estimated Glomerular Filt Rate 46 ml/min (>60); GFR (African American) 56 ML/MIN (>60); Globulin 2.9 g/dL (1.3-3.2); Glucose 106 mg/dl (74-100); Magnesium 1.4 mg/dl (1.6-2.3); Potassium 4.2 mmoL/L (3.5-5.1); Sodium 137 mmol/L (136-145); Total Protein,Serum 6.6 g/dl (6.3-8.2)
[2024-07-16 07:24] LABS: Basophils # 0.1 K/mm3 (0-0.2); Basophils % 1.8 % (0.1-2.0); Eosinophils % 0.7 % (0.1-12.0); Hematocrit 54.1 % (42.0-52.0); Lymphocytes # 2.2 K/mm3 (0.7-4.5); Lymphocytes % 48.5 % (10-50); Mean Corpuscular HGB Conc 34.4 g/dL (31.8-35.4); Mean Corpuscular Hemoglobin 26.3 pg (27.0-31.2); Mean Corpuscular Volume 76.5 fl (80-94); Mean Platelet Volume 8.5 fl (7.4-10.4); Monocytes # 0.3 K/mm3 (0.1-1.0); Monocytes % 6.7 % (1.7-9.3); Neutrophils # 1.9 K/mm3 (1.8-7.8); Neutrophils % 42.2 % (37.0-80.0); Platelet Count 161 K/mm3 (142-424); Red Cell Distribution Width 16.3 % (11.5-17.5); White Blood Count 4.5 K/mm3 (4.8-10.8)
[2024-07-16 07:27] LABS: Red Blood Count 7.07 M/mm3 (4.60-6.20)
[2024-07-16 07:45] LABS: Hemoglobin 18.6 g/dL (14.1-18.0)
[2024-07-16] MEDS: SACUBITRIL/VALSARTAN 24-26MG TABLET 1 EACH PO ×2 (08:45→20:04)
[2024-07-16] MEDS: POTASSIUM CHLORIDE 20MEQ TAB 20 MEQ PO ×3 (08:45→20:04)
[2024-07-16] MEDS: METOPROLOL TARTRATE 25MG TABLET 12.5 MG PO ×2 (08:45→20:11)
[2024-07-16] MEDS: SPIRONOLACTONE 25MG TABLET 25 MG PO (08:45)
[2024-07-16] MEDS: APIXABAN 5MG TABLET 5 MG PO ×2 (08:46→20:03)
[2024-07-16] MEDS: EMPAGLIFLOZIN 10MG TABLET 10 MG PO (08:46)
[2024-07-16] MEDS: MAGNESIUM OXIDE 400MG TABLET 400 MG PO ×2 (08:46→20:03)
[2024-07-16] MEDS: MAGNESIUM SULFATE IN WATER 2 GM/50 ML PIGGYBACK IV ×2 (08:47→14:56)
--- NOTE | 2024-07-16 10:53 | P.PN_ITS ---
Subjective Subjective Date: 07/16/24 Time: 10:54 Principal diagnosis: HFrEF, A. fib with RVR Interval history: 49 yo BM in bed in NAD Bumex drip stopped overnight due to soft BP (pt was sleeping and asymptomatic) No complaints Systolic BP stable around 90-110 mm Hg HR improving to 100-110 bpm Continues to diurese, now over 3.5 liters out this admission Exam Data for Last 24 hours Vital signs and Labs for Last 24 Hours: Temp Pulse Resp BP Pulse Ox O2 Del Method O2 Flow Rate 97.5 F L 100 H 20 107/81 L 100 Nasal Cannula 2 07/16/24 08:00 07/16/24 08:00 07/16/24 08:00 07/16/24 08:00 07/16/24 08:00 07/16/24 10:52 07/16/24 10:52 Laboratory Results - last 24 hr 07/15/24 16:02: POC Glucose 161 H 07/16/24 06:54: WBC 4.5 L, RBC 7.07 H, Hgb 18.6 H, Hct 54.1 H, MCV 76.5 L, MCH 26.3 L, MCHC 34.4, RDW 16.3, Plt Count 161, MPV 8.5, Neut % (Auto) 42.2, Lymph % (Auto) 48.5, [place] % (Auto) 6.7, Eos % (Auto) 0.7, Baso % (Auto) 1.8, Neut # (Auto) 1.9, Lymph # (Auto) 2.2, [place] # (Auto) 0.3, Eos # (Auto) 0.0, Baso # (Auto) 0.1, Sodium 137, Potassium 4.2, Chloride 96 L, Carbon Dioxide 31 H, Anion Gap 14.2, BUN 32 H, Creatinine 1.60 H, Estimated Creat Clear 96, Estimated GFR 46 L, Est GFR ( Amer) 56 L, Glucose 106 H, Calcium 8.8, Magnesium 1.4 L D , Total Bilirubin 1.6 H, AST 34, ALT 28, Alkaline Phosphatase 96, Total Protein 6.6, Albumin 3.7, Globulin 2.9, Albumin/Globulin Ratio 1.3 I & O for Last 24 hours: Intake & Output 07/13/24 07/14/24 07/15/24 07/16/24 11:59 11:59 11:59 11:59 Intake Total 1976.333 / 9292.928 9394 / 1298 1799.001 / 1799.001 Output Total 0 / 0 3075 / 3075 3475 / 3475 2074 / 2074 Balance 0 / 0 -1098.667 / -1098.667 -2177 / -2177 -275.999 / -275.999 Weight 269 lb 6 oz 270 lb 4.8 oz 270 lb 4.799 oz 270 lb 8 oz Constitutional Constitutional: no acute distress *Routine Respiratory Exam Respiratory: Present CTA bilaterally *Routine Cardiovascular Exam Cardiovascular: Present tachycardia and irregularly irregular *Routine Extremities Exam Extremities: Present edema *Routine Neurological Exam Neurological: Present alert, oriented X3 and CN II-XII intact Progress Note: A&P Assessment and plan (1) Acute on chronic HFrEF (heart failure with reduced ejection fraction): Status: Acute (2) Atrial fibrillation with RVR: Status: Acute (3) PND (paroxysmal nocturnal dyspnea): Status: Acute (4) Automatic implantable cardioverter-defibrillator in situ: Status: Chronic (5) Bilateral lower extremity edema: Status: Acute (6) HLD (hyperlipidemia): Status: Chronic (7) Obstructive sleep apnea: Status: Chronic (8) Type 2 diabetes mellitus: Status: Chronic (9) Obesity: Status: Chronic (10) Dilated cardiomyopathy: Status: Chronic Assessment and Plan Assessment and Plan for All Diagnoses:: 1. HFrEF, acute on chronic exacerbation with worsening LVEF by echo this admission (EF 10-15%) down from 40-45% previously -admitted for IV bumex drip now switching to oral -monitor I/O and electrolytes -BNP 7920 -Not a candidate for upgrade to FLATWORK PRESSER-D at this time. 2. A. fib with RVR -eliquis 5 mg BID 3. CVA, 09/2023 -careful use of rate control meds due to resurgence of CVA symptoms with low BP 4. Elevated troponins likely due to strain from HFrEF -history of normal coronaries in 2017 [facility] this admission shows mod to severe RCA disease, medical therapy 5. DM, type 2 -defer to Dr. Arnold -fab added 6. NOEMI -currently not using CPAP due to intolerance after wt loss associated with decreased food intake related to CVA 7. CKD, stage 3b -Cr 1.6 with GFR 46, stable 8. Hypokalemia -resolved -on replacement 9. Dyslipidemia -LDL 79 -on statin 10. elevated troponins -T max 0.09 -history of normal coronaries in 2017 -[facility] this admission shows mod to severe RCA disease without need for intervention at this time. Hold on dobutamine Increase metoprolol tartrate to 25 mg BID for rate control but observing for signs of cardiogenic shock. Continue diuresis Possibly home tomorrow if remains stable. Early follow up (next week) with BMP, BNP.
[2024-07-16 11:51] LABS: POC Glucose,Bedside 152 (70-110)
--- NOTE | 2024-07-16 15:21 | PC.NURSE ---
pt's temp 96.2 axillary. pt refused rectal temp due to hemorrhoids.
--- NOTE | 2024-07-16 17:14 | EXP.ACUTE.PN ---
Subjective *Date: 07/16/24 *Time: 18:18 Interval history: Patient somewhat tired today. Wore oxygen overnight with 2 L. Back to room air this morning. Down 3.5 L since admission. BP soft overnight, Bumex drip was discontinued. Denies any chest pain. No nausea or vomiting. Tolerating p.o. intake. Medical Exam Vital signs and Labs for Last 24 Hours: Vital Signs Temp Pulse Pulse Resp BP Pulse Ox O2 Del Method 07/16/24 16:00 56 L 20 94/69 L 100 Nasal Cannula 07/16/24 14:44 Room Air 07/16/24 13:00 Room Air 07/16/24 12:00 115 H 07/16/24 12:00 96.2 F L 07/16/24 12:00 91 H 20 96/75 L 96 Nasal Cannula 07/16/24 10:52 Nasal Cannula 07/16/24 08:00 140 H 07/16/24 08:00 Nasal Cannula 07/16/24 08:00 97.5 F L 100 H 20 107/81 L 100 Nasal Cannula 07/16/24 07:52 Nasal Cannula 07/16/24 07:00 Nasal Cannula 07/16/24 05:00 Nasal Cannula 07/16/24 04:00 110 H 07/16/24 04:00 97.7 F 120 H 20 102/63 L 100 Nasal Cannula 07/16/24 03:40 118 H 20 97/72 L 97 Nasal Cannula 07/16/24 03:00 Nasal Cannula 07/16/24 01:00 Nasal Cannula 07/16/24 01:00 Nasal Cannula 07/16/24 00:00 110 H 07/15/24 23:00 Nasal Cannula 07/15/24 21:00 Room Air 07/15/24 20:00 100 H 07/15/24 18:57 Room Air 07/15/24 18:00 129 H 20 166/76 H 93 L Room Air O2 Flow Rate 07/16/24 16:00 2 07/16/24 14:44 07/16/24 13:00 07/16/24 12:00 07/16/24 12:00 07/16/24 12:00 2 07/16/24 10:52 2 07/16/24 08:00 07/16/24 08:00 2 07/16/24 08:00 2 07/16/24 07:52 2 07/16/24 07:00 2 07/16/24 05:00 2 07/16/24 04:00 07/16/24 04:00 2 07/16/24 03:40 2 07/16/24 03:00 2 07/16/24 01:00 2 07/16/24 01:00 3 07/16/24 00:00 07/15/24 23:00 2 07/15/24 21:00 07/15/24 20:00 07/15/24 18:57 07/15/24 18:00 Intake and Output 07/16/24 07/16/24 07/16/24 07:59 15:59 23:59 Intake Total 347.334 / 787.334 440 / 787.334 Output Total 1075 / 1875 800 / 1875 Balance -727.666 / -1087.666 -360 / -1087.666 Intake: Intake, Oral Amount 240 / 680 440 / 680 Intake, Total IV Amount 107.334 / 107.334 Output: Output, Urine Amount 1075 / 1875 800 / 1875 Other: Weight 122.697 kg Patient Weight 07/16/24 23:59 Weight 122.697 kg Laboratory Results - last 24 hr 07/16/24 06:54: WBC 4.5 L, RBC 7.07 H, Hgb 18.6 H, Hct 54.1 H, MCV 76.5 L, MCH 26.3 L, MCHC 34.4, RDW 16.3, Plt Count 161, MPV 8.5, Neut % (Auto) 42.2, Lymph % (Auto) 48.5, Whitley % (Auto) 6.7, Eos % (Auto) 0.7, Baso % (Auto) 1.8, Neut # (Auto) 1.9, Lymph # (Auto) 2.2, Whitley # (Auto) 0.3, Eos # (Auto) 0.0, Baso # (Auto) 0.1, Sodium 137, Potassium 4.2, Chloride 96 L, Carbon Dioxide 31 H, Anion Gap 14.2, BUN 32 H, Creatinine 1.60 H, Estimated Creat Clear 96, Estimated GFR 46 L, Est GFR ( Amer) 56 L, Glucose 106 H, Calcium 8.8, Magnesium 1.4 L D, Total Bilirubin 1.6 H, AST 34, ALT 28, Alkaline Phosphatase 96, Total Protein 6.6, Albumin 3.7, Globulin 2.9, Albumin/Globulin Ratio 1.3 07/16/24 11:29: POC Glucose 152 H I & O for Labs for Last 24 Hours: Intake & Output 07/13/24 07/14/24 07/15/24 07/16/24 23:59 23:59 23:59 23:59 Intake Total 1631 / 1881 805.333 / 913.840 2876.667 / 2289.667 787.334 / 787.334 Output Total 1050 / 1050 2875 / 2875 3325 / 3700 1875 / 1875 Balance 581 / 831 -2069.667 / -2049.667 -1275.333 / -1410.333 -1087.666 / -1087.666 Weight 122.186 kg 122.606 kg 122.6 kg 122.697 kg Constitutional: Present no acute distress, obese, chronically ill appearing and cooperative Respiratory: Present normal respiratory effort; Absent rhonchi, wheezes or crackles Cardiac: Present Irregularly Regular and Tachycardia GI: Present soft and normal bowel sounds; Absent distention or tenderness Extremities: Present normal inspection, full ROM and edema (1+ edema bilaterally to knees) Skin: Present intact; Absent erythema Neuro: Present Grossly Intact, alert, awake, oriented x 3 and moves all extremities Assessment and Plan *Assessment and plan (1) Acute on chronic HFrEF (heart failure with reduced ejection fraction): Status: Acute Category: Medical Code(s): I50.23 - Acute on chronic systolic (congestive) heart failure (2) Atrial fibrillation with RVR: Status: Acute Category: Medical Code(s): I48.91 - Unspecified atrial fibrillation (3) PND (paroxysmal nocturnal dyspnea): Status: Acute Category: Medical Code(s): R06.00 - Dyspnea, unspecified (4) Automatic implantable cardioverter-defibrillator in situ: Status: Chronic Category: Medical Code(s): Z95.810 - Presence of automatic (implantable) cardiac defibrillator (5) Bilateral lower extremity edema: Status: Acute Category: Medical Code(s): R60.0 - Localized edema (6) HLD (hyperlipidemia): Status: Chronic Qualifiers: Hyperlipidemia type: mixed hyperlipidemia Qualified Code(s): E78.2 - Mixed hyperlipidemia Category: Medical Code(s): E78.5 - Hyperlipidemia, unspecified (7) Obstructive sleep apnea: Status: Chronic Category: Medical Code(s): G47.33 - Obstructive sleep apnea (adult) (pediatric) (8) Type 2 diabetes mellitus: Status: Chronic Qualifiers: Diabetes mellitus complication status: without complication Diabetes mellitus termite treater insulin use: without termite treater use Qualified Code(s): E11.9 - Type 2 diabetes mellitus without complications Category: Medical Code(s): E11.9 - Type 2 diabetes mellitus without complications (9) Obesity: Status: Chronic Qualifiers: Body mass index: BMI 40.0-44.9 Obesity classification: adult class 3 (BMI >= 40) Obesity type: due to excess calories Serious obesity comorbidity presence: without serious comorbidity Qualified Code(s): E66.01 - Morbid (severe) obesity due to excess calories; Z68.41 - Body mass index (BMI) 40.0-44.9, adult Category: Medical Code(s): E66.9 - Obesity, unspecified (10) Dilated cardiomyopathy: Status: Chronic Category: Medical Code(s): I42.0 - Dilated cardiomyopathy (11) Hemorrhoids: Status: Acute Category: Medical Code(s): K64.9 - Unspecified hemorrhoids Plan 49-year-old male with known history of heart failure with reduced ejection fraction. Has had progressive swelling and edema with orthopnea. Seen in cardiology clinic today, appears to have worsening cardiac function and volume overload. Discussed case with cardiology PA, request admission for diuresis and further inpatient management. I agreed to admit for further treatment. Diuresing well. Discontinue Bumex drip. De-escalate care to MedSurg. Cardiology assisting with care. If does well over the next 24 hours with advancement meds, plan to discharge home. Problems addressed as follows: Acute on chronic HFrEF -Worsening EF with repeat echo from today showing EF 10 to 15% -Discussed case with cardiology, transition to Bumex 2 mg twice daily and increase metoprolol to tartrate to 25 mg twice daily; down 3 and half liters since admission - left heart cath performed 07/14/2024, Stable 80% stenosis of nondominant right coronary artery. Recommend continued aggressive medical management. Does not meet criteria for transitioning to DENTURE TECHNICIAN-D at this time. - cont. goal-directed therapy with spironolactone 25 mg daily, Entresto 24/26 mg 1 tablet twice daily -Potassium normal at 4.2 today, magnesium 1.4. Replacing magnesium IV and orally Mood disorder: Continue nortriptyline 25 mg nightly Sleep disorder: Continue melatonin 2.5 mg nightly Hyperlipidemia: Continue Lipitor 80 mg nightly GERD: Continue pantoprazole 40 mg nightly A. fib with RVR -Continue Eliquis, no plan for DENTURE TECHNICIAN-D; metoprolol as above History of CVA, 09/2023: careful use of rate control meds due to resurgence of CVA symptoms with low BP Type 2 diabetes -A1c obtained, 8.0. Continue sliding scale insulin with fingersticks ACHS -Initiated Jardiance 10 mg daily CKD, stage 3b: Continues to be at baseline with creatinine 1.6, BUN 32. Close monitoring of electrolytes with diuresis. Repeat CBC, CMP, magnesium ordered for the morning Dyslipidemia LDL 79, on statin and zetia, hold for now Full code Resume Eliquis Cardiac diet
[2024-07-16 17:21] LABS: POC Glucose,Bedside 95 (70-110)
--- NOTE | 2024-07-16 17:55 | PC.NURSE ---
PT IS RESTING IN BED. ALERT AND ORIENTED X4. THIS MORNING WHEN PT GOT OOB TO SIT IN THE RECLINER HE BECAME REALLY WEAK AND DIAPHORETIC. PT STATED HE FEELS LIKE IT IS THE NEW MEDICATION THEY HAVE PUT HIM ON. PAUL NOTIFIED. DECREASED METOPROLOL DOSE TO 12.5 MG TID. BUMEX HAS BEEN HELD THIS SHIFT DUE TO PT BEING HYPOTENSIVE. 1700 BP WAS 88/53. LUNG SOUNDS DIMINISHED. ABDOMEN SOFT/NON TENDER WITH ACTIVE BOWEL SOUNDS. PT STATED HE HAD A BOWEL MOVEMENT THIS MORNING. EDEMA NOTED TO BLE. WILL CONTINUE TO MONITOR.
--- NOTE | 2024-07-16 19:51 | PC.NURSE ---
staff unable to get temperature orally and axillary after multiple attempts, patient refused temperature to be done rectally.
[2024-07-16 19:57] LABS: POC Glucose,Bedside 156 (70-110)
[2024-07-16] MEDS: MELATONIN 5MG TABLET 2.5 MG PO (20:03)
[2024-07-16] MEDS: ATORVASTATIN 40MG TABLET 80 MG PO (20:03)
[2024-07-16] MEDS: PANTOPRAZOLE 40MG TABLET 40 MG PO (20:04)
[2024-07-17] VITALS: BP 107/74; PULSE 130; PULSE 84; RESP 16; O2SAT 96
[2024-07-17] MEDS: ACETAMINOPHEN 325MG TAB 650 MG PO (02:56)
[2024-07-17 04:00] VITALS: BP 107/67; PULSE 100; PULSE 93; RESP 16; O2SAT 100; BMI 36.6
[2024-07-17 06:13] LABS: POC Glucose,Bedside 127 (70-110)
[2024-07-17 08:00] VITALS: BP 118/69; PULSE 120; PULSE 95; RESP 20; TEMP 37.3; O2SAT 96
[2024-07-17] MEDS: SACUBITRIL/VALSARTAN 24-26MG TABLET 1 EACH PO (08:26)
[2024-07-17] MEDS: EMPAGLIFLOZIN 10MG TABLET 10 MG PO (08:26)
[2024-07-17] MEDS: SPIRONOLACTONE 25MG TABLET 25 MG PO (08:26)
[2024-07-17] MEDS: POTASSIUM CHLORIDE 20MEQ TAB 20 MEQ PO (08:26)
[2024-07-17] MEDS: APIXABAN 5MG TABLET 5 MG PO (08:26)
[2024-07-17] MEDS: MAGNESIUM OXIDE 400MG TABLET 400 MG PO (08:26)
[2024-07-17] MEDS: METOPROLOL TARTRATE 25MG TABLET 12.5 MG PO (08:27)
[2024-07-17] MEDS: BUMETANIDE 1 MG TABLET 2 MG PO (08:28)
--- NOTE | 2024-07-17 08:39 | EXP.DC.SUM ---
General Admission date:: 07/13/24 Discharge date: 07/17/24 HPI HPI HPI: Mr. Campbell is a 49-year-old male with previous history of heart failure with reduced ejection fraction EF 40 to 45%. Has BiV AICD in place, history of nonischemic cardiomyopathy, NOEMI, diabetes. Presented to cardiology clinic with worsening 20 pound weight gain over the past few weeks. Was seen last week and encouraged to come to the hospital for admission, patient preferred to attempt outpatient management with diuresis. Unfortunately has not diuresed well and is continued to have dyspnea with exertion, orthopnea, lower extremity edema. Also noted to be in A-fib with RVR. Was amenable to admission today after much discussion. Medicine was consulted for admission and further care. As an outpatient today echo obtained showing further reduction in his ejection fraction to 10 to 15%. Given his severely dilated LV and worsening heart failure, cardiology request admission for diuresis and aggressive management. After arrival to the floor, review of chart shows patient's weight gain of 10 kg (approximately 20 pounds). He stable on room air at this time. Denies any chest pain. Does report just feeling weak and dyspneic. Has had to sleep in his recliner due to inability to lay flat. No nausea or vomiting. Hospital Course Hospital Course Hospital Course: 49-year-old male with known history of heart failure with reduced ejection fraction. Has had progressive swelling and edema with orthopnea. Seen in cardiology clinic today, appears to have worsening cardiac function and volume overload. Discussed case with cardiology PA, request admission for diuresis and further inpatient management. I agreed to admit for further treatment. Patient aggressively diuresed during admission. Negative over 4 L during admission. Adjustments made to his goal-directed management for heart failure. Given his improvement clinically, stable to discharge home with further management as an outpatient. Problems addressed as follows: Acute on chronic HFrEF -Patient presented with acute worsening of his heart failure with reduced ejection fraction. Increased edema in his legs. Dyspnea with exertion and positional orthopnea. Aggressively diuresed, necessitated Bumex drip to begin to have negative volume status. Was ultimately on 2 mg/h for best response. As his edema resolved, he was transition to goal-directed therapy with spironolactone 25 mg daily, Entresto 24/26 mg 1 tablet twice daily, metoprolol tartrate 12-1/2 mg every 8 hours. Transitioned back to oral Bumex 2 mg twice daily. Patient was unable to tolerate tartrate 25 mg twice daily without having low blood pressure. He was also taken for left heart cath performed 07/14/2024, Stable 80% stenosis of nondominant right coronary artery. Recommend continued aggressive medical management. Does not meet criteria for transitioning to DIRECTOR SELECTION AND ADMINISTRATION-D at this time. Electrolytes normal on day of discharge. Patient overall doing well. Stable to discharge home with close follow-up with cardiology. On room air. Wears a CPAP at night, recommend continuing. Necessitated oxygen while asleep due to not having his CPAP. Mood disorder: Continue nortriptyline 25 mg nightly Sleep disorder: Continue melatonin 2.5 mg nightly Hyperlipidemia: Continue Lipitor 80 mg nightly GERD: Continue pantoprazole 40 mg nightly A. fib with RVR: Rate better controlled during admission with treatment of metoprolol. Continue Eliquis History of CVA, 09/2023: Monitor neurologic symptoms. No confusion or focal symptoms with improvement in blood pressure and heart rate control. Type 2 diabetes -A1c obtained, 8.0. Initiated Jardiance 10 mg daily. Needs repeat A1c in 3 months CKD, stage 3b: Continues to be at baseline with creatinine 1.6, BUN 32. Dyslipidemia: LDL 79, on statin and zetia resume at discharge, Total time spent on discharge 32 minutes in counseling, documentation, chart review, and direct care with patient. Exam Data for Last 24 hours Vital signs and Labs for Last 24 Hours: Temp Pulse Resp BP Pulse Ox O2 Del Method O2 Flow Rate 96.2 F L 93 H 16 107/67 L 100 Nasal Cannula 2 07/16/24 12:00 07/17/24 04:00 07/17/24 04:00 07/17/24 04:00 07/17/24 04:00 07/17/24 06:41 07/17/24 06:41 Laboratory Results - last 24 hr 07/16/24 11:29: POC Glucose 152 H 07/16/24 17:04: POC Glucose 95 07/16/24 19:49: POC Glucose 156 H 07/17/24 06:06: POC Glucose 127 H I & O for Last 24 hours: Intake & Output 07/14/24 07/15/24 07/16/24 07/17/24 23:59 23:59 23:59 23:59 Intake Total 805.333 / 520.975 7133.667 / 2289.667 1127.334 / 1477.334 350 / 350 Output Total 2875 / 2875 3325 / 3700 2275 / 2575 700 / 700 Balance -2069.667 / -2049.667 -1275.333 / -1410.333 -1147.666 / -1097.666 -350 / -350 Weight 122.606 kg 122.6 kg 122.697 kg 122.697 kg Constitutional Constitutional: no acute distress, obese, chronically ill appearing and cooperative *Routine HEENT Exam Head: Present normocephalic Eye: Present EOMI and PERRL ENT: Present mucous membranes moist *Routine Neck Exam Neck: Present supple; Absent lymphadenopathy *Routine Respiratory Exam Respiratory: Present CTA bilaterally; Absent respiratory distress, rhonchi, wheezes or crackles *Routine Cardiovascular Exam Cardiovascular: Present RRR *Routine Abdominal Exam Abdominal: Present soft and normoactive bowel sounds; Absent tenderness *Routine Rectal Exam Patient deferred: visual exam *Routine Exam Patient deferred: penile exam *Routine Extremities Exam Extremities: Absent cyanosis, clubbing or edema *Routine Skin Exam Skin: Present intact and warm; Absent rash *Routine Neurological Exam Neurological: Present alert, oriented X3 and moving all extremities; Absent altered mental status Results Data Completed and Pending Labs on day of discharge: Labs from last 24 hours 07/17/24 07/16/24 07/16/24 06:06 19:49 17:04 POC Glucose 127 H 156 H 95 07/16/24 11:29 POC Glucose 152 H DS: Diagnosis Discharge Diagnosis (1) Acute on chronic HFrEF (heart failure with reduced ejection fraction): Status: Acute Code(s): I50.23 - Acute on chronic systolic (congestive) heart failure (2) Atrial fibrillation with RVR: Status: Acute Code(s): I48.91 - Unspecified atrial fibrillation (3) PND (paroxysmal nocturnal dyspnea): Status: Acute Code(s): R06.00 - Dyspnea, unspecified (4) Automatic implantable cardioverter-defibrillator in situ: Status: Chronic Code(s): Z95.810 - Presence of automatic (implantable) cardiac defibrillator (5) Bilateral lower extremity edema: Status: Acute Code(s): R60.0 - Localized edema (6) HLD (hyperlipidemia): Status: Chronic Code(s): E78.5 - Hyperlipidemia, unspecified Qualifiers: Hyperlipidemia type: mixed hyperlipidemia Qualified Code(s): E78.2 - Mixed hyperlipidemia (7) Obstructive sleep apnea: Status: Chronic Code(s): G47.33 - Obstructive sleep apnea (adult) (pediatric) (8) Type 2 diabetes mellitus: Status: Chronic Code(s): E11.9 - Type 2 diabetes mellitus without complications Qualifiers: Diabetes mellitus complication status: without complication Diabetes mellitus chcf insulin use: without terminal makeup operator use Qualified Code(s): E11.9 - Type 2 diabetes mellitus without complications (9) Obesity: Status: Chronic Code(s): E66.9 - Obesity, unspecified Qualifiers: Body mass index: BMI 40.0-44.9 Obesity classification: adult class 3 (BMI >= 40) Obesity type: due to excess calories Serious obesity comorbidity presence: without serious comorbidity Qualified Code(s): E66.01 - Morbid (severe) obesity due to excess calories; Z68.41 - Body mass index (BMI) 40.0-44.9, adult (10) Dilated cardiomyopathy: Status: Chronic Code(s): I42.0 - Dilated cardiomyopathy (11) Hemorrhoids: Status: Acute Code(s): K64.9 - Unspecified hemorrhoids Meds Home Medications and Allergies Home Medications ?Medication ?Instructions ?Recorded ?Confirmed ?Type ergocalciferol (vitamin D2) 1,250 1,250 mcg PO WEEKLY 04/23/21 07/13/24 History mcg (50,000 unit) capsule apixaban 5 mg tablet (Eliquis) 5 mg PO BID 07/01/24 07/13/24 History atorvastatin 80 mg tablet 80 mg PO HS 07/01/24 07/13/24 History bumetanide 2 mg tablet 2 mg PO BID #60 tabs 07/01/24 07/13/24 Rx colchicine 0.6 mg tablet 0.6 mg PO BID PRN gout 07/01/24 07/13/24 History melatonin 3 mg tablet 3 mg PO HS 07/01/24 07/13/24 History nortriptyline 50 mg capsule 50 mg PO HS 07/01/24 07/13/24 History ezetimibe 10 mg tablet 10 mg PO DAILY 07/13/24 07/13/24 History lansoprazole 30 mg delayed 30 mg PO DAILY 07/13/24 07/13/24 History release,disintegrating tablet sacubitril 24 mg-valsartan 26 mg 1 tab PO BID 07/13/24 07/13/24 History tablet (Entresto) spironolactone 25 mg tablet 25 mg PO DAILY 07/13/24 07/13/24 History empagliflozin 10 mg tablet 10 mg PO DAILY 30 days #30 tabs 07/17/24 Rx (Jardiance) metoprolol tartrate 25 mg tablet 12.5 mg (1/2 x 25 mg) PO TID 30 07/17/24 Rx days #45 tabs potassium chloride 20 mEq 20 meq PO DAILY 30 days #30 tabs 07/17/24 Rx tablet,extended release(part/cryst) (Klor-Con M) New Prescriptions to Start Prescriptions: empagliflozin [Jardiance] Boston Arnold metoprolol tartrate Boston Arnold potassium chloride [Klor-Con M20] Boston Arnold Allergies Allergy/AdvReac Type Severity Reaction Status Date / Time No Known Allergies Allergy Verified 07/13/24 09:25 Discharge Plan Disposition Patient Disposition: Home, Self-Care Condition: Fair Discharge Order Discharge Orders: Discharge Order (Routine); Ordered 07/17/24 Ordered By: Boston Arnold Follow up Plan Follow up with: Serge Garcia MD [Staff Physician] - 07/28/24 9:00 am Prescriptions/Medication Reconciliation: New Jardiance 10 mg Tablet 10 mg PO DAILY 30 Days Qty: 30 0RF metoprolol tartrate 25 mg Tablet 12.5 mg PO TID 30 Days Qty: 45 0RF potassium chloride [Klor-Con M20] 20 mEq Tablet,Er Particles/Crystals 20 meq PO DAILY 30 Days Qty: 30 0RF Continued Entresto 24-26 mg tablet 1 tab PO BID Patient Comments: TAKE 1 TABLET BY MOUTH DAILY ergocalciferol (vitamin D2) 1,250 mcg (50,000 unit) capsule 1,250 mcg PO WEEKLY Patient Comments: TAKE 1 CAPSULE BY MOUTH EVERY 7 DAYS melatonin 3 mg tablet 3 mg PO HS Patient Comments: TAKE 1 TABLET BY MOUTH NEEDED Eliquis 5 mg tablet 5 mg PO BID Patient Comments: TAKE 1 TABLET BY MOUTH TWICE DAILY atorvastatin 80 mg tablet 80 mg PO HS Patient Comments: TAKE 1 TABLET BY MOUTH DAILY colchicine 0.6 mg tablet 0.6 mg PO BID PRN (Reason: gout) Patient Comments: TAKE 1 TABLET BY MOUTH TWICE DAILY NEEDED nortriptyline 50 mg capsule 50 mg PO HS Patient Comments: TAKE 1 CAPSULE BY MOUTH AT BEDTIME bumetanide 2 mg tablet 2 mg PO BID Qty: 60 3RF spironolactone 25 mg tablet 25 mg PO DAILY ezetimibe 10 mg tablet 10 mg PO DAILY Patient Comments: TAKE 1 TABLET BY MOUTH DAILY lansoprazole 30 mg tablet,disintegrat, delay rel 30 mg PO DAILY Patient Comments: TAKE 1 TABLET BY MOUTH TWICE DAILY Discontinued carvedilol 12.5 mg tablet 12.5 mg PO BID Qty: 60 2RF Rx Instructions: must administer with a meal/food metolazone 2.5 mg tablet 2.5 mg PO Q48H Problem Reconciliation Problems Reviewed?: Yes Patient Discharge Instructions ACTIVITY: Continue current activity and Ambulate as tolerated DIET: continue same diet Patient Instructions: DI for Cardiac Catheterization, DI for Atrial Fibrillation, DI for Surgical Site Infection, DI for Heart Failure Exacerbations Print Language: Tuvaluan Providers Primary Care Provider: Provider,Referral Admit Provider: Boston Arnold Attending Provider: Boston Arnold
[2024-07-17] MEDS: HYDROCORTISONE 2.5% CREAM 28GM TUBE TP (09:38)
[2024-07-19 16:10] LABS: POC Glucose,Bedside 191 (70-110)
[2024-07-19 16:11] LABS: POC Glucose,Bedside 122 (70-110)
--- NOTE | 2024-07-20 15:21 | CARE MANAGER ---
Attempted to contact patient r/t hospital discharge x2. Left VM message. YONY Joshi
== END 2024-07-17 10:40 | disposition home or self-care (01) | DRG 287 ==
PROVIDERS: Internal Medicine; Physician Assistant; Admitting Provider Internal Medicine Adolescent Medicine; Visit Provider Internal Medicine Adolescent Medicine
PROC: B2111ZZ Fluoroscopy of Multiple Coronary Arteries using Low Osmolar Contrast (ICD-10-PCS; principal; 2024-07-14 11:55)
DX: I50.23 Acute on chronic systolic (congestive) heart failure (principal); I42.0 Dilated cardiomyopathy; E66.01 Morbid (severe) obesity due to excess calories; Z68.36 Body mass index [BMI] 36.0-36.9, adult; Z79.899 Other long term (current) drug therapy; Z95.810 Presence of automatic (implantable) cardiac defibrillator; I48.0 Paroxysmal atrial fibrillation; Z79.01 Long term (current) use of anticoagulants; N18.30 Chronic kidney disease, stage 3 unspecified; E11.22 Type 2 diabetes mellitus with diabetic chronic kidney disease; E87.6 Hypokalemia
CPT/HCPCS: 36415; 80048; 80053; 82962; 83036; 83735; 84484; 85025; 85610; 93454; 99152; C1725; C1769; J1200; J1644; J1650; J1939; J2250; J3010; J3475; J3480; Q9967